=== PATIENT | female | born 1940 | race Caucasian/White ===

== ENCOUNTER 2018-08-30 04:36 | Inpatient (IN) | payer MEDICARE, BC ==
[2018-08-30] VITALS (23 sets, daily range): BP systolic 106–164; BP diastolic 51–87
[~2018-08-30] VITALS: Ht 157.5 cm; Wt 61.2 kg
[2018-08-30 04:52] LABS: HEMATOCRIT 34.4 % (37.0-47.0); HEMOGLOBIN 10.8 gm/dL (12.0-15.0); MCH 26.2 pg (26.0-34.0); MCHC 31.3 g/dL (28.0-37.0); MCV 83.6 fL (80.0-100.0); MPV 9.6 fl. (7.2-11.1); NUCLEATED RBCS 0 /100WBC; PLATELET COUNT* 246 thou/uL (150-400); RBC 4.11 mil/uL (4.20-5.00); RDW-CV 18.8 % (10.5-14.5); WBC 14.4 thou/uL (4.0-11.0)
[2018-08-30] MEDS ORDERED: VITAMINC500 PO (04:56)
[2018-08-30] MEDS ORDERED: ASPIR 8181 MG PO (04:57)
[2018-08-30] MEDS ORDERED: LIPITOR10 MG PO (04:57)
[2018-08-30] MEDS ORDERED: VITAMIN B-12500 MCG PO (04:58)
[2018-08-30] MEDS ORDERED: NORCO 5-325 TA1 EACH PO ×2 (04:58→05:10)
[2018-08-30] MEDS ORDERED: CYCLOBENZAPRINE5 MG PO (04:59)
[2018-08-30] MEDS ORDERED: CARDIZEM CD120 MG PO (05:00)
[2018-08-30] MEDS ORDERED: COLACE100 MG PO ×2 (05:00→05:13)
[2018-08-30] MEDS ORDERED: GABAPENTIN 100100 MG PO (05:01)
[2018-08-30] MEDS ORDERED: ARICEPT 5 MG TAB5 MG PO (05:01)
[2018-08-30] MEDS ORDERED: LASIX 40 MG TAB40 M2 PO (05:01)
[2018-08-30] MEDS ORDERED: CENTRUM SILVER1 EAC2 PO (05:02)
[2018-08-30] MEDS ORDERED: MELATIN3 MG PO (05:02)
[2018-08-30] MEDS ORDERED: RISPERIDONE 00.25 M1 PO (05:03)
[2018-08-30] MEDS ORDERED: PROTONIX40 M1 PO (05:03)
[2018-08-30] MEDS ORDERED: FLOMAX0.4 MG PO (05:03)
[2018-08-30] MEDS ORDERED: PROPRANOLOL 1010 MG PO (05:04)
[2018-08-30] MEDS ORDERED: EFFEXOR XR75 MG PO (05:04)
[2018-08-30] MEDS ORDERED: SYNTHROID112 MC1 PO (05:05)
[2018-08-30] MEDS ORDERED: MIRALAX17 GM PO (05:05)
[2018-08-30] MEDS ORDERED: RESTORIL7.5 M1 PO (05:08)
[2018-08-30 05:09] LABS: INR 1.1; PROTIME 11.6 Seconds (9.20-11.50)
[2018-08-30] MEDS ORDERED: FLORASTOR250 MG PO (05:09)
[2018-08-30] MEDS ORDERED: PROLIA60 MG/1 ML SUBQ (05:12)
[2018-08-30] MEDS ORDERED: AZITHROMYCIN 2250 MG PO (05:12)
[2018-08-30] MEDS ORDERED: SENNA8.6 MG PO (05:13)
[2018-08-30] MEDS ORDERED: DUONEB ×2 (05:18→05:19)
[2018-08-30] MEDS ORDERED: BIOFREEZE118 ML (05:21)
[2018-08-30 05:39] LABS: BE 7.3 mmol/L (-2 to +3); HCO3 33.3 mmol/L (22.0-26.0); PO2 80.3 mmHg (75.0-100.0); pH 7.405 (7.340-7.450)
[2018-08-30 05:40] LABS: PCO2 54.3 mmHg (35.0-45.0)
[2018-08-30 05:41] LABS: ANION GAP 6 mmol/L (7-16); BUN 10 mg/dL (7-18); CALCIUM 8.8 mg/dL (8.5-10.1); CHLORIDE 97 mmol/L (98-107); CO2 37 mmol/L (21-32); CREATININE 0.9 mg/dL (0.6-1.3); GLUCOSE 189 mg/dL (70-99); POTASSIUM 3.5 mmol/L (3.5-5.1); SODIUM 140 mmol/L (136-145)
[2018-08-30 05:52] LABS: ALKALINE PHOSPHATASE 105 U/L (46-116); LIPASE 50 U/L (73-393); SGOT 33 U/L (15-37); SGPT 22 U/L (30-65); TOTAL BILIRUBIN 0.5 mg/dL (<0.1-1.0)
[2018-08-30 05:54] LABS: ALBUMIN 3.4 g/dL (3.4-5.0); NT-PRO BRAIN NAT PEPTIDE 3509 pg/mL (<300); TOTAL PROTEIN 7.8 g/dL (6.4-8.2)
[2018-08-30 05:55] LABS: TROPONIN-I LEVEL <0.06 ng/mL (<0.06)
[2018-08-30 06:36] LABS: ABSOLUTE LYMPHOCYTES 1.2 thou/uL (0.8-5.3); ABSOLUTE NEUTROPHILS 12.2 thou/uL (1.6-8.1); PLATELET ESTIMATE ADEQUATE
[2018-08-30 06:37] LABS: ANISOCYTOSIS 1+; POIKILOCYTOSIS 1+
--- NOTE | 2018-08-30 07:21 | NUR ---
PT ADMITTED TO ICU ROOM 6 AT 0640 FOR BILATERAL PNEUMONIA. PT RESIDES AT [facility]. PT'S DAUGHTER AT BEDSIDE REALTING HEALTH HISTORY. VITAL SIGNS WITHIN NORMAL LIMITS. PT RECIEVING IV LEVAQUIN.
--- NOTE | 2018-08-30 08:08 | NUR ---
ASSUMED PT CARE 0730. PT ALERT TO PERSON AND PLACE. PER DTR MONCHO (AT BEDSIDE) PT TYPICALLY HAS DIFFICULTY WITH DATES. PT RESTING WITH BIPAP IN PLACE AT FIO2 @45% PT SATTING AT 95%. PT CALM AND COOPERATIVE. ALCAZAR DRANING DEPENDENTLY. WILL CONTINUE PLAN OF CARE.
[2018-08-30 11:12] LABS: URINE BILIRUBIN NEGATIVE (Negative); URINE BLOOD NEGATIVE (Negative); URINE CLARITY SL CLOUDY; URINE COLOR STRAW; URINE GLUCOSE-RANDOM NEGATIVE (Negative); URINE KETONES NEGATIVE (Negative); URINE LEUKOCYTES-REFLEX NEGATIVE (Negative); URINE NITRITE-REFLEX NEGATIVE (Negative); URINE PROTEIN NEGATIVE (Negative); URINE UROBILINOGEN 0.2 E.U./dl (0.2-1.0)
[2018-08-30 11:20] LABS: SQUAMOUS 0-3 Few /LPF (0-3)
[2018-08-30 11:22] LABS: BACTERIA-REFLEX 1-9 Few /HPF (None Seen); CASTS None Seen /LPF (None Seen); CRYSTALS None Seen /LPF (None Seen); URINE RBC None Seen /HPF (0-2); URINE WBC-REFLEX 0-5 Rare /HPF (0-5)
[2018-08-30 11:23] LABS: AMORPHOUS PHOSPHATES Moderate /LPF (None Seen)
--- NOTE | 2018-08-30 12:22 | NUR ---
PT TAKEN OFF BIPAP AT 1045. PT PLACED ON 5L NC SATTING 95%.
--- NOTE | 2018-08-30 13:36 | CON ---
[address] [address] CONSULTATION Name: SOTO FERNANDEZ Room: [address] IN M.R.#: [id number] Admission: 08/30/18 Attend Phys: Jennifer Becerra MD Discharge: Date of : 36 Report #: [id number] THIS REPORT FOR: //name// CC: Nazario Becerra REFERRING PHYSICIAN: Dr. Walden. CHIEF COMPLAINT: The patient was on BiPAP during my evaluation with a background history of dementia. She did not provide meaningful history, although she was lethargic, but she was able to nod her head yes and no, and she is protecting her airways. HISTORY OF PRESENT ILLNESS: This is a 77-year-old female patient with history of dementia. Per the daughter, she is wheelchair bound because of history of CVA in the past that left her weak on the left side. Also in the past, she had history of aspiration at one point, although currently she is on regular diet, but her daughter said in the past, she was on thickened food in the past. Apparently, she improved, and she was started on regular diet. The patient was treated for pneumonia 3 weeks ago at [facility], and again a few days ago, she was started on azithromycin for pneumonia at the facility. She was brought in due to acute respiratory failure, worsening respiratory status. When she came to the ER, she was hypoxic, and she had to be placed on BiPAP. Apparently, her O2 saturation in the ER was in the 60s. She has history of oxygen for at least a year or two now, but the daughter is not clear what is the reason for that, but she knows that the patient has history of congestive heart failure. The patient never smoked. She is not on any inhalers at home. Her baseline oxygen 3.5 liters. She has pacemaker placed, and she has paroxysmal AFib with a stroke as mentioned above, in addition to dysphagia. REVIEW OF SYSTEMS: At this point, not obtainable due to the patient's condition and history of dementia. ALLERGIES: PENICILLIN AND SULFA. PAST MEDICAL HISTORY: Recurrent pneumonia. History of dementia, hypertension, atrial fibrillation, CHF, status post pacemaker, degenerative disk disease, osteoporosis, compression fracture x 2 in her back, ischemic stroke in 2018. History of TIA in the past. She is wheelchair bound. She has urinary retention, reflux disease, dysphagia, bipolar disorder and anemia. PAST SURGICAL HISTORY: Includes cataract surgery, hemorrhoidectomy, hysterectomy, cholecystectomy. FAMILY HISTORY: Reviewed with the daughter, not pertinent to [place] [address] CONSULTATION Name: SOTO FENRANDEZ Room: [address] IN M.R.#: [id number] Admission: 08/30/18 Attend Phys: Jennifer Becerra MD Discharge: Date of : 36 Report #: [id number] SOCIAL HISTORY: Never smoked. Does not drink alcohol. Does not abuse drugs. She is wheelchair bound. She has history of dementia, and she lives at the nursing facility. HOME MEDICATIONS: Reviewed. She is on vitamin C, aspirin, Lipitor, Flexeril, Cardizem, Aricept, Lasix, Neurontin, Protonix, Flomax, Inderal, Restoril, senna. PHYSICAL EXAMINATION: VITAL SIGNS: She is on BiPAP 45%, saturation 97% on the monitor. She is breathing around 18 times a minute, pulse rate of 70, afebrile. GENERAL: Elderly lady. Looks her stated age. BiPAP mask in place. When stimulated, she would shake her head yes or no, but did not talk.. I did not take the BiPAP mask off. Externally, looks healthy and normal. NECK: Full range of movement. Nontender. CHEST: Diminished air movement bilaterally. No definite wheezes, some rhonchi at the bases. No crackles. HEART: S1, S2, no murmur. ABDOMEN: Soft, lax, benign, nontender, obese. Positive bowel sounds. No masses felt, no rebound, no rigidity. EXTREMITIES: Lower extremity edema around +1 equal bilaterally. No calf tenderness. NEUROLOGIC: Arousable. Shaking head yes and no. She had left-sided weakness, but did not follow my instructions for limb examination. PSYCHIATRIC: Mood and affect could not be evaluated. SKIN: Normal for age and race, no rash. LYMPHATICS: No palpable lymph nodes. LABORATORY DATA: Her white blood count 14.4, hemoglobin 10.8 and platelets of 246. Her ABGs on the BiPAP 7.40/54/80. This was done on 50% FiO2. Her INR is 1.1. Her creatinine is 0.9, with a potassium 3.5, sodium 140. BNP was elevated at 3509. Her MRSA screen is pending. She had a chest x-ray in the ER that demonstrated right lower lobe infiltrates with signs of vascular congestion and pleural effusion bilaterally. She underwent CT of the chest that did not show pulmonary embolus, but showed bilateral effusion with consolidation, mostly on the right, also seen in the left. IMPRESSION: 1. Xlvaf-vz-rphhvob hypoxic and hypercapnic respiratory failure. Baseline oxygen at home 3.5 liters. 2. Pulmonary infiltrate. 3. Dysphagia. 4. Suspected repeated aspiration. 5. Congestive heart failure exacerbation with fluid overload. 6. Bilateral pleural effusion. 7. Pulmonary vascular congestion/edema. 8. [place] [address] CONSULTATION Name: SOTO FERNANDEZ Room: [address] IN [facility].#: [id number] Admission: 08/30/18 Attend Phys: Jennifer Becerra MD Discharge: Date of : 36 Report #: [id number] 9. History of atrial fibrillation. PLAN: At this point, the patient's respiratory failure is multifactorial. She has infiltrates. I agree with antibiotic. Also discussed with Dr. Gomez. She would benefit from a swallow evaluation and aspiration precautions. I agree with diuresis. Monitor kidney function and avoid fluid overload. She will be on scheduled nebulization treatment. I did discuss with RN. We will start giving her breaks off the BiPAP and monitor her work of breathing and O2 saturation. Likely, she will be on BiPAP every time she sleeps during this hospitalization. She needs to be on aspiration precautions. She needs a swallow evaluation. We will do a followup chest x-ray in the morning. Discussed with her daughter and RN. Thank you for the consult. Critical care time 35 minutes. <ELECTRONICALLY SIGNED> By: Jae Oates MD 08/30/18 1336 1015 Viraj Oates MD /florencio
--- NOTE | 2018-08-30 16:24 | 2DMMODE ---
[place] [address] 2 D/M-MODE ECHOCARDIOGRAM Name: SOTO FERNANDEZ Room: [address] IN [facility]#: [id number] Admission: 08/30/18 Attend Phys: Jennifer Becerra, Discharge: Date of : 36 Date of Service: 08/30/18 1624 Report #: [id number] THIS REPORT FOR: //name// APPROVED REPORT Study performed: 08/30/2018 09:51:12 EXAM: Comprehensive 2D, Doppler, and color-flow Echocardiogram Patient Location: In-Patient Room #: 006 Status: routine BSA: 1.70 HR: 70 bpm BP: 121/64 mmHg Rhythm: NSR Other Information Study Quality: Good Indications Atrial Fibrillation 2D Dimensions IVSd: 13.91 (7-11mm) LVOT Diam: 18.03 (18-24mm) LVDd: 37.23 mm PWd: 9.61 (7-11mm) Ascending Ao: 29.68 (22-36mm) LVDs: 23.26 (25-40mm) Aortic Root: 26.01 mm Volumes Left Atrial Volume (Systole) LA ESV Index: 27.80 mL/m2 Aortic Valve AoV Peak Roberto.: 1.27 m/s AO Peak Gr.: 6.46 mmHg LVOT Max P.42 mmHg AO Mean Gr.: 3.41 mmHg LVOT Mean P.56 mmHg LVOT Max V: 0.92 m/s AO V2 VTI: 26.20 cm LVOT Mean V: 0.57 m/s LI (VTI): 2.07 cm2 LVOT V1 VTI: 21.24 cm Mitral Valve E/A Ratio: 2.67 MV Decel. Time: 201.09 ms MV E Max Roberto.: 0.91 m/[place] [address] 2 D/M-MODE ECHOCARDIOGRAM Name: SOTO FERNANDEZ Room: [address] IN .R.#: [id number] Admission: 08/30/18 Attend Phys: Jennifer Becerra, Discharge: Date of : 36 Date of Service: 08/30/18 1624 Report #: [id number] MV PHT: 58.32 ms MVA (PHT): 3.77 cm2 TDI E/Lateral E': 10.11 E/Medial E': 15.17 Medial E' Roberto.: 0.06 m/s Lateral E' Roberto.: 0.09 m/s Pulmonary Valve PV Peak Roberto.: 0.98 m/s PV Peak Gr.: 3.85 mmHg Tricuspid Valve RAP Estimate: 5.00 mmHg TR Peak Gr.: 46.51 mmHg RVSP: 51.00 mmHg PA Pressure: 51.00 mmHg Left Ventricle The left ventricle is normal size. There is normal LV segmental wall motion. Mild concentric left ventricular hypertrophy. Left ventricular systolic function is normal. The left ventricular ejection fraction is within the normal range. LVEF is 60-65%. Right Ventricle The right ventricle is normal size. The right ventricular systolic function is normal. Pacemaker lead is present in the right ventricle. Atria Left atrium is moderately dilated. The right atrium size is normal. Aortic Valve Mild aortic valve sclerosis. No aortic regurgitation is present. There is no aortic valvular stenosis. Mitral Valve Mild mitral annular calcification. Mild mitral regurgitation. No evidence of mitral valve stenosis. Tricuspid Valve The tricuspid valve is normal in structure. Moderate tricuspid regurgitation. Moderate pulmonary hypertension. Pulmonic Valve The pulmonary valve is normal in structure. Trace [place] [address] 2 D/M-MODE ECHOCARDIOGRAM Name: SOTO FERNANDEZ Room: [address] IN [facility]#: [id number] Admission: 08/30/18 Attend Phys: Jennifer Becerra, Discharge: Date of : 36 Date of Service: 08/30/18 1624 Report #: [id number] Great Vessels The aortic root is normal in size. IVC is normal in size and collapses >50% with inspiration. Pericardium There is no pericardial effusion. <Conclusion> The left ventricle is normal size. Mild concentric left ventricular hypertrophy. Left ventricular systolic function is normal. The left ventricular ejection fraction is within the normal range. LVEF is 60-65%. The right ventricle is normal size. Left atrium is moderately dilated. The right atrium size is normal. Mild aortic valve sclerosis. No aortic regurgitation is present. There is no aortic valvular stenosis. Mild mitral annular calcification. Mild mitral regurgitation. No evidence of mitral valve stenosis. The tricuspid valve is normal in structure. Moderate tricuspid regurgitation. Moderate pulmonary hypertension. IVC is normal in size and collapses >50% with inspiration. There is no pericardial effusion. There is normal LV segmental wall motion. <ELECTRONICALLY SIGNED> By: Hi Doe MD, FACC 08/30/18 1624 23 23 Hi Doe MD, FACC /INF
--- NOTE | 2018-08-30 16:38 | EKG ---
[place] [address] ELECTROCARDIOGRAM REPORT Name: SOTO FERNANDEZ Room: [address] ADM IN .R.#: [id number] Admission: 08/30/18 Attend Phys: Jennifer Becerra MD Discharge: Date of : 36 Report #: [id number] THIS REPORT FOR: //name// [facility] ED Test Date: 2018-08-30 Test Time: 04:44:11 Pat Name: SOTO FERNANDEZ Department: Room: [facility] Gender: F Bone Char Operator: [place] : 1940 Requested By: Silvana Gutierrez Order Number: [id number] MD: Hi Doe Measurements Intervals [place] Rate: 99 P: 0 GA: 150 QRS: 19 QRSD: 100 T: 194 QT: 351 QTc: 451 Interpretive Statements Atrial fibrillation Repol abnrm suggests ischemia, lateral leads No previous ECG available for comparison Electronically Signed On 08-30-2018 16:38:39 [employer]ID PLANT HELPER by Hi Doe [email or web address] <ELECTRONICALLY SIGNED> By: Hi Doe MD, [facility] 08/30/18 1638 D: 11/443 3 Hi Doe MD, FACC /EPI
--- NOTE | 2018-08-30 17:10 | NUR ---
TITRATING O2 PER PROTOCOL. PER DTR PT WEARS 3L NC AT [facility]. PT SEEN BY SPEECH AND RECEIVED ORDERS FOR REGULAR DIET AND THIN LIQUIDS. PT ALERT TO PERSON AND PLACE. PER DTR PT GENERALLY HAS DIFFICULTY WITH DATE. PT STATED TO DTR "SORRY I GOT SICK". PT AWARE OF SITUATION. VSS. APACED ON TIMBER HAND.
--- NOTE | 2018-08-30 19:10 | NUR ---
PER ST DIET CAN BE CHANGED TO MECHANICAL CHOPPED IF PT REPORTS DIFFICULTY CHEWING FOOD. AT DINNER PT REPORTED FOOD DIFFICULT TO CHEW. ORDER PLACED FOR MECHANICAL CHOPPED DIET.
--- NOTE | 2018-08-30 19:54 | NUR ---
PER DTR PT DOES NOT TAKE ASPIRIN AND TAKES ANOTHER BLOOD THINNER. DR NOTIFIED AND ASKED IF AWARE IF PT TAKES COUMADIN OR ANOTHER BLOOD THINNER. PER TO CONFIRM WITH [facility].
[2018-08-30] MEDS ORDERED: ELIQUIS2.5 MG PO (20:01)
[2018-08-31] VITALS (16 sets, daily range): BP systolic 116–150; BP diastolic 61–79
[2018-08-31 05:31] LABS: ABSOLUTE BASOPHILS 0.1 thou/uL (0.0-0.2); ABSOLUTE EOSINOPHILS 0.1 thou/uL (0.0-0.7); ABSOLUTE LYMPHOCYTES 0.8 thou/uL (0.8-5.3); ABSOLUTE MONOCYTES 0.6 thou/uL (0.0-1.2); ABSOLUTE NEUTROPHILS 6.6 thou/uL (1.6-8.1); BASOPHILS 0.7 %; EOSINOPHILS 0.9 %; HEMATOCRIT 30.7 % (37.0-47.0); HEMOGLOBIN 9.7 gm/dL (12.0-15.0); LYMPHOCYTES 9.9 %; MCH 26.5 pg (26.0-34.0); MCHC 31.7 g/dL (28.0-37.0); MCV 83.5 fL (80.0-100.0); MONOCYTES 7.5 %; MPV 10.3 fl. (7.2-11.1); NUCLEATED RBCS 0 /100WBC; PLATELET COUNT* 199 thou/uL (150-400); RBC 3.68 mil/uL (4.20-5.00); RDW-CV 18.2 % (10.5-14.5); WBC 8.1 thou/uL (4.0-11.0)
[2018-08-31 05:47] LABS: CALCIUM 8.1 mg/dL (8.5-10.1); MAGNESIUM 1.7 mg/dL (1.8-2.4)
[2018-08-31 05:50] LABS: POTASSIUM 2.8 mmol/L (3.5-5.1)
[2018-08-31 08:32] LABS: BE 13.8 mmol/L (-2 to +3); PO2 68.9 mmHg (75.0-100.0); pH 7.437 (7.340-7.450)
[2018-08-31 08:34] LABS: HCO3 40.2 mmol/L (22.0-26.0)
--- NOTE | 2018-08-31 11:00 | NUR ---
SPOKE WITH PATIENT AND DTR NORMA AT BEDSIDE. PT IS A [facility] RESIDENT AT [facility]. DTR SAID SHE HAS LIVED THERE SINCE MARCH AND HAS DONE WELL. PT HAS SOME FORGETFULNESS. PT ON SOFT DIET WITH THIN LIQUIDS, DTR SAID PT SOMETIMES HAS A HARD TIME CHEWING HER FOOD. PT HAS AN IV IN HER LEFT HAND, DTR SAID PT HAS HAD A LEFT MASTECTOMY SO SHOULDN'T HAVE AN IV IN THAT ARM, NURSING NOTIFIED. PLAN IS FOR PT TO RETURN TO [facility] AT DISCHARGE.
[2018-08-31] MEDS ORDERED: XANAX 0.25 MG0.25 MG PO (18:45)
--- NOTE | 2018-08-31 18:46 | NUR ---
DR. OLIVO NOTIFIED THAT PATIENT VERY ANXIOUS AND STATED THAT "THEY GIVE ME SOMETHING FOR THIS OVER AT THE LONG TERM." NO RECORDS FOUND OF ANTI ANXIETY MEDICATIONS. PATIENT 02 SAT DROPPED TO MID 80'S ON 02 5L NC, RT NOTIFIED AND BIPAP PLACED ON PATIENT. PATIENT STILL VERY ANXIOUS. ORDERS RECEIVED FROM DR. OLIVO FOR PRN LORAZEPAM, PATIENT GIVEN DOSE THIS EVENING. SPOKE WITH PATIENTS DAUGHTER AND PER DAUGHTER STATED THAT PATIENT TAKES XANAX. CLARIFIED MED AND DOSE WITH SMV. IV SCHED ABX INFUSED ORDERED. LARGE URINE OUTPUT, SCHED LASIX GIVEN ORDERED. PATIENT REFUSING MOST OF SHIFT TO TURN, EDUCATION GIVEN WITH EACH REFUSAL. PATIENT RESTING COMFORTABLY IN BED AT THIS TIME.
[2018-09-01 00:02] VITALS: BP 131/65
[2018-09-01 04:00] VITALS: BP 116/60
[2018-09-01 04:17] LABS: ABSOLUTE LYMPHOCYTES 0.9 thou/uL (0.8-5.3); ABSOLUTE MONOCYTES 0.7 thou/uL (0.0-1.2); BASOPHILS 0.3 %; EOSINOPHILS 0.2 %; HEMATOCRIT 29.8 % (37.0-47.0); HEMOGLOBIN 9.4 gm/dL (12.0-15.0); LYMPHOCYTES 9.3 %; MCH 26.4 pg (26.0-34.0); MCHC 31.4 g/dL (28.0-37.0); MCV 84.1 fL (80.0-100.0); MONOCYTES 7.7 %; MPV 10.2 fl. (7.2-11.1); NUCLEATED RBCS 0 /100WBC; PLATELET COUNT* 186 thou/uL (150-400); POLYS 82.5 %; RBC 3.54 mil/uL (4.20-5.00); RDW-CV 18.2 % (10.5-14.5); WBC 9.7 thou/uL (4.0-11.0)
[2018-09-01 04:33] LABS: CALCIUM 7.7 mg/dL (8.5-10.1); CREATININE 0.9 mg/dL (0.6-1.3); POTASSIUM 3.6 mmol/L (3.5-5.1)
--- NOTE | 2018-09-01 05:24 | NUR ---
ASSESSMENT COMPLETE. PT SLEPT THROUGH THE NIGHT WITHOUT ANY COCNERNS. PT TOLERATED BIPAP WITH ADEQAUTE SATS. Q2 TURN. DENIES PAIN AND N/V. AFEBRILE AND VITALS STABLE. SEE ASSESSMENT FOR DETAILS. CALL LIGHT WITHIN REACH, WILL CONTINUE PLAN OF CARE
[2018-09-01 08:00] VITALS: BP 101/65
[2018-09-01 11:22] LABS: BE 10.5 mmol/L (-2 to +3); HCO3 36.4 mmol/L (22.0-26.0); PO2 69.9 mmHg (75.0-100.0)
[2018-09-01 11:23] LABS: PCO2 56.1 mmHg (35.0-45.0)
--- NOTE | 2018-09-01 16:46 | NUR ---
PATIENT ALERT AND AWAKE, CONFUSED TODAY, ONLY ORIENTED TO PERSON. RE-ASSURED. ON 5L O2, NC, BIPAP AT NIGHT AND PRN. IV RIGHT HAND SALINE LOCK WITH IV ABX. Q2 TURN, SEVERAL BOWEL MOVEMENTS THIS MORNING, NO MORE AFTER THE AFTERNOON. ALCAZAR CATHETER. LEFT SIDED WEAKNESS, HX OF CVA IN 2018. C/O BACK PAIN, RELIEF WITH POSSITION CHANGED AND MEDICATION. GENERALIZED EDEMA. DAUGHTER AT BEDSIDE. NO OTHER CONCERNS AT THIS TIME. APPROPRIATE AND COOPORATIVE WITH CARE.
[2018-09-01 17:03] VITALS: BP 143/66
[2018-09-01 20:00] VITALS: BP 140/51
[2018-09-01 23:56] VITALS: BP 119/67
[2018-09-02 03:50] VITALS: BP 125/68
[2018-09-02 03:53] LABS: HEMATOCRIT 30.6 % (37.0-47.0); HEMOGLOBIN 9.7 gm/dL (12.0-15.0); MCH 26.5 pg (26.0-34.0); MCHC 31.6 g/dL (28.0-37.0); MCV 83.7 fL (80.0-100.0); MPV 10.3 fl. (7.2-11.1); RBC 3.66 mil/uL (4.20-5.00); RDW-CV 18.7 % (10.5-14.5); WBC 7.4 thou/uL (4.0-11.0)
[2018-09-02 04:09] LABS: CALCIUM 7.4 mg/dL (8.5-10.1); CREATININE 0.9 mg/dL (0.6-1.3)
[2018-09-02 04:10] LABS: POTASSIUM 2.9 mmol/L (3.5-5.1)
--- NOTE | 2018-09-02 05:07 | NUR ---
ASSUMED CARE OF PT AT 1900 PT ALERT AND ORIENTED X4 BUT CONFUSED AND FORGETFUL AT TIMES. PT REQUESTED SLEEP MED BEFORE BED BIPAP PLACE THEN PT SLEPT THROUGH THE NIGHT. PT HAD INCREASED PACER SPIKES IN GROUPED FORM NOTIFIED DR OLIVO ORDERS FOR COREG PLACED AND GIVEN. PT K 2.9 IN THE AM BEGAN REPLACEMENT. WILL CONTINUE PLAN OF CARE.
[2018-09-02 08:47] VITALS: BP 118/62
[2018-09-02 12:06] VITALS: BP 120/60
[2018-09-02 16:03] VITALS: BP 145/72
--- NOTE | 2018-09-02 17:14 | NUR ---
PATIENT SOMEWHAT PROGRESSING WELL TOWARDS GOALS. TITRATED DOWN TO 4 LITERS NASAL CANULA BUT UNABLE TO GO MORE THAN THAT. STILL HAS SOME LABORED BREATHING. ANTIBIOTICS GIVEN THIS SHIFT AND LASIX. AXOX2-3, FORGETFUL. DAUGHTER HAS BEEN HERE AND UPDATED ON TREATMENT AND PLAN OF CARE. DENIES ANY SHORTNESS OF AIR AND NAUSEA. SOME BACK PAIN, PAIN MEDICATIONS GIVEN. BED IN LOWEST POSITION, CALL LIGHT IN REACH.
[2018-09-02 20:00] VITALS: BP 132/66
[2018-09-03] VITALS: BP 137/68
--- NOTE | 2018-09-03 00:26 | NUR ---
PATIENT RESTED IN BED, NO ACUTE CHANGES. PATIENT DID NOT SHOW SIGNS OF DISTRESS. FALL PRECAUTIONS IN PLACE, CALL LIGHT WITH IN REACH, HOURLY ROUNDING OBSERVED, BED ALARM ON.
[2018-09-03 04:00] VITALS: BP 146/76
[2018-09-03 05:30] LABS: CALCIUM 7.2 mg/dL (8.5-10.1); POTASSIUM 3.8 mmol/L (3.5-5.1)
[2018-09-03 07:40] VITALS: BP 144/61
[2018-09-03 09:25] LABS: BE 3.6 mmol/L (-2 to +3); HCO3 28.9 mmol/L (22.0-26.0); PO2 70.6 mmHg (75.0-100.0); pH 7.406 (7.340-7.450)
[2018-09-03 12:00] VITALS: BP 160/65
--- NOTE | 2018-09-03 14:55 | NUR ---
JESSI spoke with Ale in admissions at [facility] to follow up on possible dc plan for over the weekend. JESSI faxed updated info and face sheet as requested to Ale at [facility] fax [phone]. Orders to be faxed to same fax number upon dc. Call Ale at ph [phone], she plans to work over the weekend and approved of pt to return to [facility] over the weekend and will set up transport when needed. [facility] main number [phone]. JESSI called pt dtr Tamika at [phone] and discussed dc planning for either tomorrow or Thursday. Pt dtr in agreement with plan.
[2018-09-03 16:37] VITALS: BP 133/61
--- NOTE | 2018-09-03 18:19 | NUR ---
ASSESSMENT COMPLETE. PT ANXIOUS AND REPORTING SOA MOST OF THE DAY. PT GIVEN PRN LORAZEPAM WHICH SEEMED TO HELP PATIENT TOLERATE BIPAP. PT IS ON 5L PER NC WHEN OFF BIPAP. PT ON BIPAP MOST OF THE DAY. PT STARTED ON 2000ML FLUID RESTRICTION TODAY. PT REPORTED PAIN IN BACK, PRN MEDICATION GIVEN WITH SOME RELIEF REPORTED. ALCAZAR DC'D PER ORDERS. IV IN RIGHT FOREARM, SALINE LOCKED. PT Q2 TURN. REDNESS NOTED TO GROIN AND BUTTOCKS. PT IS [facility] IN NEXT COUPLE OF DAYS. PT IS A-PACED ON TELE MONITOR. SEE ASSESSMENT AND VITALS FOR OTHER DETAILS. CALL LIGHT WITHIN REACH, WILL CONTINUE PLAN OF CARE
[2018-09-03 21:00] VITALS: BP 101/43
[2018-09-04 00:44] VITALS: BP 156/61
[2018-09-04 04:19] LABS: HEMATOCRIT 26.6 % (37.0-47.0); HEMOGLOBIN 8.4 gm/dL (12.0-15.0); MCH 26.7 pg (26.0-34.0); MCHC 31.6 g/dL (28.0-37.0); MCV 84.6 fL (80.0-100.0); MPV 10.3 fl. (7.2-11.1); RBC 3.14 mil/uL (4.20-5.00); RDW-CV 18.7 % (10.5-14.5); WBC 12.1 thou/uL (4.0-11.0)
[2018-09-04 04:32] LABS: CALCIUM 7.4 mg/dL (8.5-10.1); CREATININE 0.8 mg/dL (0.6-1.3)
[2018-09-04 05:14] LABS: POTASSIUM 2.9 mmol/L (3.5-5.1)
[2018-09-04 05:21] VITALS: BP 135/76
--- NOTE | 2018-09-04 07:55 | NUR ---
PATIENT SLEPT PART OF THE NIGHT. IV REMAINS SALINE LOCKED. PATIENT REMAINED ON THE BIPAP ALL NIGHT EXCEPT TO TAKE HER PILLS. PATIENT COMPLAINED OF BACK AND LEFT LEG PAIN. PAIN MEDICINE WAS GIVEN TWICE AND ANXIETY MEDICINE WAS GIVEN ONCE THIS SHIFT. PATIENT HAS BEEN INCONTINENT OF URINE SEVERAL TIMES. HR HAS BEEN ELEVATED IN THE 100'S THIS MORNING. WILL CONTINUE TO MONITOR.
--- NOTE | 2018-09-04 11:14 | NUR ---
NOTIFIED DR MASON OF PATIENT'S HEARTRATE AND MULTIPLE PACEMAKER FIRES. CONFIRMED PACEMAKER IS [employer] THROUGH NURSE AT [facility] AND DAUGHTER NORMA. I ALSO CONFIRMED WITH [employer]. PACEMAKER INTERROGATION REQUESTED TODAY WITH THE [employer] REP.
[2018-09-04 11:50] VITALS: BP 127/83
[2018-09-04 12:00] VITALS: BP 130/61
--- NOTE | 2018-09-04 16:06 | NUR ---
PATIENT IS ALERT AND ORIENTED TODAY PLEASANT BUT ANXIOUS. ON 6 LITERS OF OXYGEN THROUGH NASAL CANNULA TODAY, ABLE TO NOT USE BIPAP TODAY. APPETITE IS FAIR. VITAL SIGNS STABLE OTHER THAN HEART RATE. [employer] CALLED TODAY TO CHECK OUT PACEMAKER, HAVE NOT SEEN YET. PATIENT IS BEING TRANSFERRED TO TELE ROOM 220. PATIENT LEFT VIA BED TO 22O WITH. REPORT GIVEN TO NURSE.
[2018-09-04 16:13] VITALS: BP 129/78
--- NOTE | 2018-09-04 16:16 | NUR ---
PT TRANSFERRED TO ROOM 220 AROUND 1600. REPORT RECEIVED FROM MED/SURG NURSE. ALCAZAR PLACED PRIOR TO TRANSFER. CONTINUING POTASSIUM REPLACEMENT. NO OTHER CONCERNS AT THIS TIME. CLWR. WCTM.
[2018-09-04 20:00] VITALS: BP 122/64
[2018-09-05] VITALS (7 sets, daily range): BP systolic 83–176; BP diastolic 41–152
--- NOTE | 2018-09-05 04:19 | NUR ---
ASSUMED CARE OF PT AFTER REPORT AT 1930. PT A&OX4. FORGETFUL. VSS. PHYSICAL ASSESSMENT COMPLETED AND CHARTED. PT ON O2 AT 6L NC/BIPAP WHEN SLEEPING WITH 94% O2 SAT. PT TRACING AFIB/VPACED ON TELE. ON CARDIZEM DRIP AT 10MLS/HR. PT REQUESTED FOR SLEEPING PILL- GIVEN PER DEC. PT WITH ALCAZAR TO DEPENDENT DRAIN. PT RESTED WELL ON BED. PT TURNED EVERY 2 HOURS. HOURLY ROUNDING OBSERVED. CALL LIGHT WITHIN REACH. BED IN LOW POSITION. BED ALARM ON.
[2018-09-05 04:39] LABS: CALCIUM 7.6 mg/dL (8.5-10.1); CREATININE 0.8 mg/dL (0.6-1.3)
[2018-09-05 13:09] LABS: HEMATOCRIT 30.9 % (37.0-47.0); HEMOGLOBIN 9.7 gm/dL (12.0-15.0); MCH 26.5 pg (26.0-34.0); MCHC 31.3 g/dL (28.0-37.0); MCV 84.6 fL (80.0-100.0); MPV 10.3 fl. (7.2-11.1); NUCLEATED RBCS 0 /100WBC; PLATELET COUNT* 214 thou/uL (150-400); RBC 3.66 mil/uL (4.20-5.00); RDW-CV 18.6 % (10.5-14.5); WBC 14.6 thou/uL (4.0-11.0)
--- NOTE | 2018-09-05 13:23 | CON ---
[address] [address] CONSULTATION Name: REBECCASOTO Liseth Room: [address] IN M.R.#: [id number] Admission: 08/30/18 Attend Phys: Jennifer Becerra MD Discharge: Date of : 36 Report #: [id number] THIS REPORT FOR: //name// CC: Nazario Becerra Cardiology Consultation INDICATION: Atrial fibrillation with rapid ventricular response rate. HISTORY OF PRESENT ILLNESS: The patient was admitted to the hospital several days ago with what was felt to be sepsis and acute respiratory failure. There appears to be an element of acute on chronic diastolic heart failure as well. She has been diuresing adequately with IV Lasix. This morning, she was noted to be in atrial fibrillation with a rapid ventricular response rate. By history, she has a dual chamber pacemaker placed many years ago. Interrogation shows that she has paroxysmal atrial fibrillation with the latest episode beginning 13 hours ago. Pacemaker thresholds, impedances, sensing, and battery life all appear good. The patient denies any chest pain or significant shortness of breath. She has chronic mid and low back pain from osteoporosis and compression fractures. She is without specific cardiac complaint. Hemodynamically, she appears stable. PAST MEDICAL HISTORY: 1. Paroxysmal atrial fibrillation. 2. Status post dual chamber pacemaker placement. 3. Chronic diastolic heart failure. 4. Osteoporosis. 5. Dementia. 6. History of CVA/TIAs. 7. Hysterectomy. 8. Hemorrhoidectomy. 9. Cholecystectomy. 10. Left mastectomy. 11. Cataract removal. FAMILY HISTORY: Noncontributory. SOCIAL HISTORY: The patient resides in assisted care. There is no alcohol or drug use. REVIEW OF SYSTEMS: Noncontributory. PHYSICAL EXAMINATION: VITAL SIGNS: Blood pressure 129/78, pulse is currently in the one-teens to 120s [place] [address] CONSULTATION Name: SOTO FERNANDEZ Room: [address]#: [id number] Admission: 08/30/18 Attend Phys: Jennifer Becerra MD Discharge: Date of : 36 Report #: [id number] GENERAL: This is a pleasant elderly female who is in no distress. HEENT: Head is normocephalic, atraumatic. Pupils are equally round and reactive to light. Extraocular muscles intact. NECK: Shows no jugular venous distention. I do not appreciate carotid bruit. CHEST: Chest reveals diminished breath sounds throughout. CARDIAC: Reveals a tachycardic rate that is irregularly irregular. I do not appreciate gallop or murmur. ABDOMEN: Reveals normal bowel sounds. The abdomen is soft, nontender. EXTREMITIES: Shows no edema. SKIN: Warm and dry. DATA: Telemetry monitoring presently shows atrial fibrillation with rapid ventricular response rate. Early telemetry showed atrial pacing with first-degree AV block. Chest x-ray shows persistent pneumonia. This is improving. Labs are reviewed. Sodium 144, potassium 2.9, chloride 107, bicarbonate 29, BUN 17, creatinine 0.8, serum glucose 111. LFTs within normal limits. NT-proBNP 6888. White blood cell count 12.1, hemoglobin 8.4, platelet count 176,000. IMPRESSION AND RECOMMENDATIONS: 1. Paroxysm of atrial fibrillation with rapid ventricular response. The patient is chronically anticoagulated. I would continue this. Starting sotalol 80 mg twice daily in an effort to force conversion to sinus rhythm and maintain sinus rhythm. Continue diltiazem drip for now. 2. History of sick sinus syndrome, status post dual chamber pacemaker placement remotely. Pacemaker interrogation today shows normal function. 3. Pneumonia per primary physician. 4. Acute on chronic diastolic heart failure. The patient is responding nicely to IV diuresis. Continue Lasix as ordered. 5. Hypokalemia. We will order additional potassium bolus at this time. <ELECTRONICALLY SIGNED> By: Marlon De Luna MD, FACC 09/05/18 1323 1702 [id number] De Luna MD, FACC /nt
[2018-09-05 13:26] LABS: ALBUMIN 2.4 g/dL (3.4-5.0); CREATININE 0.9 mg/dL (0.6-1.3); POTASSIUM 3.4 mmol/L (3.5-5.1); TOTAL BILIRUBIN 0.5 mg/dL (<0.1-1.0); TOTAL PROTEIN 6.8 g/dL (6.4-8.2)
[2018-09-05 13:55] LABS: ABSOLUTE LYMPHOCYTES 1.5 thou/uL (0.8-5.3); ABSOLUTE MONOCYTES 0.7 thou/uL (0.0-1.2); ABSOLUTE NEUTROPHILS 12.4 thou/uL (1.6-8.1); PLATELET ESTIMATE ADEQUATE
[2018-09-05 13:56] LABS: ANISOCYTOSIS 1+
--- NOTE | 2018-09-05 15:38 | EKG ---
[place] [address] ELECTROCARDIOGRAM REPORT Name: SOTO FERNANDEZ Room: [address] ADM IN ..#: [id number] Admission: 08/30/18 Attend Phys: Jennifer Becerra MD Discharge: Date of : 36 Report #: [id number] THIS REPORT FOR: //name// [facility] Test Date: 2018-09-04 Test Time: 17:09:11 Pat Name: SOTO FERNANDEZ Department: Room: [address] Gender: F Accounting Professional: : 1940 Requested By: Marlon De Luna Order Number: [id number] Reading MD: Marlon De Luna Measurements Intervals [place] Rate: 126 P: [place]: QRS: -12 QRSD: 87 T: 175 QT: 306 QTc: 444 Interpretive Statements Atrial fibrillation Repol abnrm suggests ischemia, diffuse leads Compared to ECG 08/30/2018 04:44:11 Possible ischemia still present Electronically Signed On 09-05-2018 15:38:14 EDGER TECHNICIAN by Marlon De Luna [email or web address] <ELECTRONICALLY SIGNED> By: Marlon De Luna MD, [facility] 09/05/18 1538 1709 1709 Marlon De Luna MD, FAC /EPI
--- NOTE | 2018-09-05 15:40 | EKG ---
[place] [address] ELECTROCARDIOGRAM REPORT Name: SOTO FERNANDEZ Room: [address] ADM IN ..#: [id number] Admission: 08/30/18 Attend Phys: Jennifer Becerra MD Discharge: Date of : 36 Report #: [id number] THIS REPORT FOR: //name// [facility] Test Date: 2018-09-05 Test Time: 03:03:10 Pat Name: SOTO FERNANDEZ Department: Room: [address] Gender: F Phototypesetting Equipment Monitor: MARITA : 1940 Requested By: Marlon De Luna Order Number: [id number] Reading MD: Marlon De Luna Measurements Intervals [place] Rate: 99 P: CA: QRS: -6 QRSD: 90 T: 209 QT: 441 QTc: 567 Interpretive Statements Atrial fibrillation Repol abnrm suggests ischemia, diffuse leads Prolonged QT interval Compared to ECG 08/30/2018 04:44:11 Prolonged QT interval now present Possible ischemia still present Electronically Signed On 09-05-2018 15:40:45 WINDING RACK OPERATOR by Marlon De Luna [email or web address] <ELECTRONICALLY SIGNED> By: Marlon De Luna MD, FAC 09/05/18 1540 0303 0303 Marlon De Luna MD, [facility] /EPI
--- NOTE | 2018-09-05 16:38 | NUR ---
PT SOMEWHAT PROGRESSING TOWARDS GOALS THIS SHIFT. B/P LOW AROUND NOON. IV CARDIZEM GTT DC'D. PT GIVEN PART OF NS FLUID BOLUS. ASSESSED LABS. PT B/P REASSESSED AND WNL. PT REQUESTED PRN MEDICATION FOR PAIN X1 AND ANXIETY X1 THIS SHIFT. NO OTHER CONCERNS AT THIS TIME. CLWR. WCTM.
[2018-09-06 00:07] VITALS: BP 127/55
[2018-09-06 04:00] VITALS: BP 119/76
[2018-09-06 04:52] LABS: CALCIUM 7.8 mg/dL (8.5-10.1); CREATININE 0.8 mg/dL (0.6-1.3)
[2018-09-06 04:55] LABS: POTASSIUM 4.7 mmol/L (3.5-5.1)
[2018-09-06 04:57] LABS: ABSOLUTE LYMPHOCYTES 0.4 thou/uL (0.8-5.3); ABSOLUTE MONOCYTES 0.2 thou/uL (0.0-1.2); ABSOLUTE NEUTROPHILS 9.4 thou/uL (1.6-8.1); BASOPHILS 0.1 %; HEMATOCRIT 31.6 % (37.0-47.0); LYMPHOCYTES 3.9 %; MCH 26.8 pg (26.0-34.0); MCHC 31.6 g/dL (28.0-37.0); MCV 84.7 fL (80.0-100.0); MONOCYTES 1.7 %; MPV 10.5 fl. (7.2-11.1); NUCLEATED RBCS 0 /100WBC; PLATELET COUNT* 196 thou/uL (150-400); POLYS 94.3 %; RBC 3.73 mil/uL (4.20-5.00); RDW-CV 18.3 % (10.5-14.5); WBC 9.9 thou/uL (4.0-11.0)
--- NOTE | 2018-09-06 05:09 | NUR ---
ASSUMED CARE OF PT AFTER REPORT AT 1930. PT A&OX3. FORGETFUL. VSS. PHYSICAL ASSESSMENT COMPLETED AND CHARTED. PT ON O2 AT 4L NC/BIPAP WHEN SLEEPING WITH 96% O2 SAT. PT TRACING AFIB/AV PACED ON TELE. PT WITH ALCAZAR TO DEPENDENT DRAIN PT DENIES CHEST PAIN OR SOA. PT RESTED WELL ON BED. TURNED PT EVERY 2 HOURS. HOURLY ROUNDING OBSERVED. CALL LIGHT WITHIN REACH. BED IN LOW POSITION. BED ALARM ON.
[2018-09-06 07:20] VITALS: BP 101/49
[2018-09-06 09:52] LABS: BE 0.8 mmol/L (-2 to +3); HCO3 26.2 mmol/L (22.0-26.0); PCO2 44.5 mmHg (35.0-45.0); PO2 69.1 mmHg (75.0-100.0); pH 7.387 (7.340-7.450)
--- NOTE | 2018-09-06 09:56 | NUR ---
Updated Ale with SMV of Pt's current POC, Pt to return to [facility] at dc. Following.
--- NOTE | 2018-09-06 10:37 | EKG ---
[place] [address] ELECTROCARDIOGRAM REPORT Name: SOTO FERNANDEZ Room: [address] ADM IN .R.#: [id number] Admission: 08/30/18 Attend Phys: Jennifer Becerra MD Discharge: Date of : 36 Report #: [id number] THIS REPORT FOR: //name// [facility] Test Date: 2018-09-06 Test Time: 03:43:26 Pat Name: SOTO FERNANDEZ Department: Room: [address] Gender: F Mailmaster: [facility] : 1940 Requested By: Marlon De Luna Order Number: [id number] Gonzales MD: Paresh Amaya Measurements Intervals [place] Rate: 102 P: [place]: QRS: -12 QRSD: 93 T: 231 QT: 440 QTc: 574 Interpretive Statements sinus tachycardia with pac's Probable LVH with secondary repol abnrm Prolonged QT interval Compared to ECG 09/05/2018 03:03:10 rate increased Electronically Signed On 09-06-2018 10:36:49 ENTRY LEVEL ACCOUNT EXECUTIVE by Paresh Amaya [email or web address] <ELECTRONICALLY SIGNED> By: Paresh Amaya MD, [facility] 09/06/18 1036 0343 0343 Paresh Amaya MD, [facility] /EPI
--- NOTE | 2018-09-06 10:39 | EKG ---
[place] [address] ELECTROCARDIOGRAM REPORT Name: SOTO FERNANDEZ Room: [address] ADM IN [facility].#: [id number] Admission: 08/30/18 Attend Phys: Jennifer Becerra MD Discharge: Date of : 36 Report #: [id number] THIS REPORT FOR: //name// [facility] Test Date: 2018-09-06 Test Time: 08:39:44 Pat Name: SOTO FERNANDEZ Department: Room: [address] Gender: F Regulatory Affairs Spec: : 1940 Requested By: Marlon De Luna Order Number: [id number] Gonzales MD: Paresh Amaya Measurements Intervals [place] Rate: 85 P: GA: QRS: -7 QRSD: 96 T: 250 QT: 424 QTc: 505 Interpretive Statements Atrial fibrillation Abnormal T, consider ischemia, diffuse leads Prolonged QT interval Electronically Signed On 09-06-2018 10:39:38 PAINTER ROUGH by Paresh Amaya [email or web address] <ELECTRONICALLY SIGNED> By: Paresh Amaya MD, [facility] 09/06/18 1039 0839 0839 Paresh Amaya MD, FACC /EPI
[2018-09-06 12:19] VITALS: BP 102/61
--- NOTE | 2018-09-06 12:22 | NUR ---
Nutrition: Pt assessed for LOS. Admitted with PNA. Pt nonverbal, will go back to [facility] at disch. BG 220, alb 2.4, prealb 15.3. Wt seems to be decreasing, per [employer]. Current wt is 135#. Fiber restricted diet. Mild risk. Unsure po intake today. Increased nutrient needs R/T etiology unknown AEB labs above, possible wt loss. RD WILL ORDER ENSURE HIGH PROTEIN FOR ADDED NUTRITION.
[2018-09-06 17:08] VITALS: BP 98/42
[2018-09-06 20:00] VITALS: BP 104/62
[2018-09-07] VITALS: BP 120/74
[2018-09-07 04:00] VITALS: BP 135/87
[2018-09-07 04:51] LABS: HEMATOCRIT 30.9 % (37.0-47.0); HEMOGLOBIN 9.7 gm/dL (12.0-15.0); MCH 26.9 pg (26.0-34.0); MCHC 31.4 g/dL (28.0-37.0); MCV 85.5 fL (80.0-100.0); MPV 10.5 fl. (7.2-11.1); RBC 3.61 mil/uL (4.20-5.00); RDW-CV 18.7 % (10.5-14.5); WBC 11.4 thou/uL (4.0-11.0)
--- NOTE | 2018-09-07 05:06 | NUR ---
ASSUMED CARE OF PT AFTER REPORT AT 1930. PT A&OX3. FORGETFUL. VSS. PHYSICAL ASSESSMENT COMPLETED AND CHARTED. PT ON O2 AT 4L NC/ BIPAP AT NIGHT WITH 96% O2 SAT. PT TRACING AFIB/VPACED ON TELE. PT REPORTED TO BE UP WITH 2 MAS ASSIST TO RECLINER BUT REMAINS ON BED ALL NIGHT. PT WITH ALCAZAR TO DEPENDENT DRAIN. DENIES ANY PAIN OR DISCOMFORT. HOURLY ROUNDING OBSERVED. CALL LIGHT WITHIN REACH. BED IN LOW POSITION. BED ALARM ON.
[2018-09-07 05:14] LABS: ALBUMIN 2.4 g/dL (3.4-5.0); CREATININE 0.9 mg/dL (0.6-1.3); MAGNESIUM 2.4 mg/dL (1.8-2.4); PHOSPHORUS* 2.1 mg/dL (2.5-4.9); POTASSIUM 4.5 mmol/L (3.5-5.1)
[2018-09-07 08:00] VITALS: BP 130/72
[2018-09-07 11:25] VITALS: BP 109/65
[2018-09-07 15:00] VITALS: BP 136/72
--- NOTE | 2018-09-07 16:26 | EKG ---
[place] [address] ELECTROCARDIOGRAM REPORT Name: SOTO FERNANDEZ Room: [address] ADM IN ..#: [id number] Admission: 08/30/18 Attend Phys: Jennifer Becerra MD Discharge: Date of : 36 Report #: [id number] THIS REPORT FOR: //name// [facility] Test Date: 2018-09-07 Test Time: 08:12:27 Pat Name: SOTO FERNANDEZ Department: Room: [address] Gender: F Wholesale Loan Processor: : 1940 Requested By: Paresh Amaya Order Number: [id number] Reading MD: Marlon De Luna Measurements Intervals [place] Rate: 97 P: NV: QRS: 2 QRSD: 94 T: 261 QT: 390 QTc: 496 Interpretive Statements Atrial fibrillation Repol abnrm suggests ischemia, anterolateral Compared to ECG 09/06/2018 08:39:44 Early repolarization now present T-wave abnormality no longer present Prolonged QT interval no longer present Possible ischemia still present Electronically Signed On 09-07-2018 16:25:54 ATHLETIC AGENT by Marlon De Luna [email or web address] <ELECTRONICALLY SIGNED> By: Marlon De Luna MD, FACC 09/07/18 1625 1 1 Marlon De Luna MD, FAC /EPI
--- NOTE | 2018-09-07 17:33 | NUR ---
PT ALERT, ORIENTED X3. TELE TRACKING AFIB, OCCASIONAL PACING AND VSS ON 4L. PT UP IN CHAIR ON WAFFLE CUSHION FOR MAJORITY OF SHIFT. TOLERATED WELL. BM X2 TODAY, ALCAZAR TO DD WITH ADEQUATE OUTPUT. ISAI AREA REDDENED- BARRIER CREAM APPLIED. EDUCATED ON SAFETY AND PLAN OF CARE. PLEASE SEE ASSESSMENT FOR ADDITIONAL INFORMATION. WILL CONTINUE TO MONITOR
[2018-09-07 20:00] VITALS: BP 131/75
[2018-09-08] VITALS: BP 139/89
[2018-09-08 04:00] VITALS: BP 123/69
--- NOTE | 2018-09-08 04:32 | NUR ---
ASSUMED CARE OF PT AFTER REPORT AT 1930. PT A&OX2-3. FORGETFUL. VSS. PHYSICAL ASSESSMENT COMPLETED AND CHARTED. PT ON O2 AT 4L NC/ BIPAP AT NIGHT WITH 94% O2 SAT. PT WITH ALCAZAR TO DEPENEDENT DRAIN. PT RESTED WELL ON BED. DENIES ANY PAIN OR DISCOMFORT. HOURLT ROUNDING OBSERVED. CALL LIGHT WITHIN REACH. BED IN LOW POSITION. BED ALARM ON.
[2018-09-08 05:44] LABS: ALBUMIN 2.3 g/dL (3.4-5.0); CALCIUM 8.1 mg/dL (8.5-10.1); CREATININE 0.8 mg/dL (0.6-1.3); MAGNESIUM 2.5 mg/dL (1.8-2.4); PHOSPHORUS* 1.8 mg/dL (2.5-4.9); POTASSIUM 4.7 mmol/L (3.5-5.1)
[2018-09-08 08:00] VITALS: BP 133/88
--- NOTE | 2018-09-08 10:16 | NUR ---
EMANATIONS ANALYSIS TECHNICIAN SPOKE TO LIZZY WITH [facility] TO INFORM THAT THE PATIENT MAY D/C TODAY AND FAXED UPDATED CLINICALS. CM WILL REMAIN AVAILABLE TO ASSIST AND FOLLOW NEEDED.
--- NOTE | 2018-09-08 10:17 | EKG ---
[place] [address] ELECTROCARDIOGRAM REPORT Name: SOTO FERNANDEZ Room: [address] ADM IN [facility].#: [id number] Admission: 08/30/18 Attend Phys: Jennifer Becerra MD Discharge: Date of : 36 Report #: [id number] THIS REPORT FOR: //name// [facility] Test Date: 2018-09-08 Test Time: 08:26:23 Pat Name: SOTO FERNANDEZ Department: Room: [address] Gender: F Compensation And Benefits Manager: : 1940 Requested By: Paresh Amaya Order Number: [id number] Gonzales MD: Paresh Amaya Measurements Intervals [place] Rate: 118 P: [place]: QRS: 1 QRSD: 91 T: 257 QT: 360 QTc: 505 Interpretive Statements Atrial fibrillation Probable LVH with secondary repol abnrm Prolonged QT interval Baseline wander in lead(s) V2 Compared to ECG 09/07/2018 08:12:27 rate increased Electronically Signed On 09-08-2018 10:17:12 IN SHOP SERVICE TECHNICIAN by Paresh Amaya [email or web address] <ELECTRONICALLY SIGNED> By: Paresh Amaya MD, [facility] 09/08/18 1017 5 5 Paresh Amaya MD, [facility] /EPI
[2018-09-08 12:19] VITALS: BP 123/78
[2018-09-08] MEDS ORDERED: CYCLOBENZAPRINE5 MG PO (12:52)
[2018-09-08] MEDS ORDERED: PROPRANOLOL 1010 MG PO (13:09)
[2018-09-08] MEDS ORDERED: XANAX 0.25 MG0.25 MG PO (13:17)
[2018-09-08] MEDS ORDERED: LEVAQUIN 500 M500 M3 PO (13:19)
[2018-09-08] MEDS ORDERED: PREDNISONE 10 M10 MG PO (13:21)
--- NOTE | 2018-09-08 15:32 | NUR ---
ASSUMED PT CARE AT 0730 REPORT RECEIVED FROM NURSE. PT IS AOX4 AFIB ON HEART MONITOR. LYING IN BED WEARING HER BIPAP FIO2 40% . VSS. BIPAP REMOVED, O2 2 L NC APPLIED . SATURATION REMAINS 96%. NO COMPLAINT OF PAIN. MEDICATIONS ADMISTERED ORDERED WITH APPLE SAUCE. PT ASSITED WIHT BREAKFAST INTAKE. IV LINE PATENT. CARDIO DR SEEN PT IN ROOM. MADE SOME CHANGES ON PT MEDS. LATER DR MASON SEEN PT AND ORDER DISCHARGE TO [facility]. PT FAMILY CAME IN THE AM. MADE AWARE OF PT D/C PLAN. PT DIS NOT RECEIVE HER AM DOSE OF LEVAQUIN IV SINCE PT HAD MULTIPLE IV MEDS INIFUSING. DR MASON NOTIFIED ABOUT IT. DR MASON SAYS IT WAS FINE. PT CURRENTLY GETTING READY BY [employer] FOR D.C. AWAITING FOR SCHEDULED TRANSPORTATION.
--- NOTE | 2018-09-08 16:30 | NUR ---
REPORT GIVEN TO NORMA FROM [facility] AT 1600. PT LEFT FLOOR AT 1545 TO SD ACCOMPANIED BY TRANSPORTER , WITH O2 NC 2 L ON WHEELCHAIR.
== END 2018-09-08 15:45 | DRG 871 ==
LOC: M.ERS 04:36 → M.TBA-ER 05:27 → M.ICU 05:27 → M.ERS 06:19 → M.ICU 06:33 → M.3W 08-31 11:22 → M.2W 09-04 16:13
PROVIDERS: Emergency Medicine; Family Medicine; Internal Medicine; Internal Medicine Cardiovascular Disease; Internal Medicine Pulmonary Disease; ADMIT Internal Medicine
PROC: 5A09357 Assistance with Respiratory Ventilation, Less than 24 Consecutive Hours, Continuous Positive Airway Pressure (ICD-10-PCS; principal; 2018-08-30)
PROC: 5A09357 Assistance with Respiratory Ventilation, Less than 24 Consecutive Hours, Continuous Positive Airway Pressure (ICD-10-PCS; 2018-08-31)
PROC: 5A09357 Assistance with Respiratory Ventilation, Less than 24 Consecutive Hours, Continuous Positive Airway Pressure (ICD-10-PCS; 2018-09-01)
PROC: 5A09357 Assistance with Respiratory Ventilation, Less than 24 Consecutive Hours, Continuous Positive Airway Pressure (ICD-10-PCS; 2018-09-02)
PROC: 5A09357 Assistance with Respiratory Ventilation, Less than 24 Consecutive Hours, Continuous Positive Airway Pressure (ICD-10-PCS; 2018-09-03)
PROC: 5A09357 Assistance with Respiratory Ventilation, Less than 24 Consecutive Hours, Continuous Positive Airway Pressure (ICD-10-PCS; 2018-09-04)
PROC: 5A09357 Assistance with Respiratory Ventilation, Less than 24 Consecutive Hours, Continuous Positive Airway Pressure (ICD-10-PCS; 2018-09-05)
PROC: 5A09357 Assistance with Respiratory Ventilation, Less than 24 Consecutive Hours, Continuous Positive Airway Pressure (ICD-10-PCS; 2018-09-06)
PROC: 5A09357 Assistance with Respiratory Ventilation, Less than 24 Consecutive Hours, Continuous Positive Airway Pressure (ICD-10-PCS; 2018-09-07)
DX: A41.9 Sepsis, unspecified organism (principal); J96.22 Acute and chronic respiratory failure with hypercapnia; J96.21 Acute and chronic respiratory failure with hypoxia; I50.33 Acute on chronic diastolic (congestive) heart failure; J69.0 Pneumonitis due to inhalation of food and vomit; I69.354 Hemiplegia and hemiparesis following cerebral infarction affecting left non-dominant side; F03.90 Unspecified dementia, unspecified severity, without behavioral disturbance, psychotic disturbance, mood disturbance, and anxiety; M81.0 Age-related osteoporosis without current pathological fracture; K21.9 Gastro-esophageal reflux disease without esophagitis; I48.0 Paroxysmal atrial fibrillation; D64.9 Anemia, unspecified; M19.90 Unspecified osteoarthritis, unspecified site; M40.209 Unspecified kyphosis, site unspecified; G89.29 Other chronic pain; M54.9 Dorsalgia, unspecified; R33.9 Retention of urine, unspecified; E03.9 Hypothyroidism, unspecified; E87.6 Hypokalemia; F31.9 Bipolar disorder, unspecified; I11.0 Hypertensive heart disease with heart failure; Z90.710 Acquired absence of both cervix and uterus; Z90.12 Acquired absence of left breast and nipple; Z90.49 Acquired absence of other specified parts of digestive tract; Z98.42 Cataract extraction status, left eye; Z98.41 Cataract extraction status, right eye; Z99.3 Dependence on wheelchair; Z79.82 Long term (current) use of aspirin; Z79.899 Other long term (current) drug therapy; Z88.0 Allergy status to penicillin; Z88.2 Allergy status to sulfonamides

== ENCOUNTER 2018-09-26 01:39 | Inpatient (IN) | payer MEDICARE, BC ==
[2018-09-26] VITALS (7 sets, daily range): BP systolic 92–129; BP diastolic 35–62
[~2018-09-26] VITALS: Ht 157.5 cm; Wt 63.5 kg
[~2018-09-26 01:39] MED LIST: ACCUNEB SO1.25 MG/1 INH; ARICEPT 5 MG TAB5 MG PO; ASPIR 8181 MG PO; AZITHROMYCIN 2250 MG PO; BIOFREEZE118 ML; CARDIZEM CD120 MG PO; CENTRUM SILVER1 EAC2 PO; COLACE100 MG PO; CYCLOBENZAPRINE5 MG PO; DUONEB; EFFEXOR XR75 MG PO; ELIQUIS2.5 MG PO; FLOMAX0.4 MG PO; FLORASTOR250 MG PO; GABAPENTIN 100100 MG PO; LASIX 40 MG TAB40 M2 PO; LEVAQUIN 500 M500 M3 PO; LIPITOR10 MG PO; MELATIN3 MG PO; MIRALAX17 GM PO; NORCO 5-325 TA1 EACH PO; PREDNISONE 10 M10 MG PO; PROLIA60 MG/1 ML SUBQ; PROPRANOLOL 1010 MG PO; PROTONIX40 M1 PO; RESTORIL7.5 M1 PO; RISPERIDONE 00.25 M1 PO; SENNA8.6 MG PO; SYNTHROID112 MC1 PO; VITAMIN B-12500 MCG PO; VITAMINC500 PO; XANAX 0.25 MG0.25 MG PO
[2018-09-26 02:19] LABS: HEMOGLOBIN 10.4 gm/dL (12.0-15.0); MCH 28.4 pg (26.0-34.0); MCHC 32.4 g/dL (28.0-37.0); MCV 87.5 fL (80.0-100.0); MPV 10.3 fl. (7.2-11.1); NUCLEATED RBCS 0 /100WBC; PLATELET COUNT* 120 thou/uL (150-400); RBC 3.66 mil/uL (4.20-5.00); RDW-CV 20.2 % (10.5-14.5); WBC 10.2 thou/uL (4.0-11.0)
[2018-09-26 02:40] LABS: ANION GAP 8 mmol/L (7-16); BUN 17 mg/dL (7-18); CALCIUM 8.4 mg/dL (8.5-10.1); CHLORIDE 102 mmol/L (98-107); CO2 31 mmol/L (21-32); CREATININE 0.9 mg/dL (0.6-1.3); GLUCOSE 164 mg/dL (70-99); POTASSIUM 3.8 mmol/L (3.5-5.1); SODIUM 141 mmol/L (136-145)
[2018-09-26 02:41] LABS: INR 1.1
[2018-09-26 02:52] LABS: ALBUMIN 2.8 g/dL (3.4-5.0); ALKALINE PHOSPHATASE 83 U/L (46-116); NT-PRO BRAIN NAT PEPTIDE 2103 pg/mL (<300); SGOT 36 U/L (15-37); SGPT 37 U/L (30-65); TOTAL BILIRUBIN 0.6 mg/dL (<0.1-1.0); TOTAL PROTEIN 6.5 g/dL (6.4-8.2); TROPONIN-I LEVEL <0.06 ng/mL (<0.06)
[2018-09-26 02:56] LABS: URINE BILIRUBIN NEGATIVE (Negative); URINE BLOOD NEGATIVE (Negative); URINE CLARITY CLEAR; URINE COLOR YELLOW; URINE GLUCOSE-RANDOM NEGATIVE (Negative); URINE KETONES TRACE (Negative); URINE LEUKOCYTES-REFLEX NEGATIVE (Negative); URINE NITRITE-REFLEX NEGATIVE (Negative); URINE PROTEIN TRACE (Negative); URINE SPECIFIC GRAVITY 1.025 (1.005-1.030); URINE UROBILINOGEN 0.2 E.U./dl (0.2-1.0)
[2018-09-26 03:50] LABS: ABSOLUTE LYMPHOCYTES 0.9 thou/uL (0.8-5.3); ABSOLUTE MONOCYTES 0.6 thou/uL (0.0-1.2); ABSOLUTE NEUTROPHILS 8.7 thou/uL (1.6-8.1)
[2018-09-26 03:54] LABS: ANISOCYTOSIS 2+; PLATELET ESTIMATE DECREASED
[2018-09-26 03:55] LABS: HYPOCHROMASIA 1+; POLYCHROMASIA 1+
[2018-09-26 04:44] LABS: BE 7.5 mmol/L (-2 to +3); HCO3 31.8 mmol/L (22.0-26.0); PCO2 43.9 mmHg (35.0-45.0); pH 7.478 (7.340-7.450)
[2018-09-26 04:47] LABS: PO2 320.8 mmHg (75.0-100.0)
--- NOTE | 2018-09-26 06:11 | NUR ---
ASSUMED PT CARE AT 0530. PT IS AWAKE AND ALERT. BROUGHT UP BY ED STAFF STACEY BIPAP. PT SATTING MID TO LOW 90'S. ON BIPAP. PT IS A PACED ON THE MONITOR, VERY PALE AND DIAPHORETIC. ADMISSION COMPLETED CHARTED. BED IN LOW POSITION. CALL LIGHT IN REACH YELLOW ARM BAND AND SOCKS IN PLACE. HOURLY ROUNDING COMPLETED FOR PT SAFETY.
--- NOTE | 2018-09-26 13:50 | EKG ---
[place] [address] ELECTROCARDIOGRAM REPORT Name: SOTO FERNANDEZ Room: [address] ADM IN [facility].#: [id number] Admission: 09/26/18 Attend Phys: Owen Sellers MD Discharge: Date of : 36 Report #: [id number] THIS REPORT FOR: //name// [facility] ED Test Date: 2018-09-26 Test Time: 02:15:20 Pat Name: SOTO FERNANDEZ Department: Room: [facility] Gender: F Insecticide Expert: : 1940 Requested By: Silvana Gutierrez Order Number: [id number] MD: Paresh Amaya Measurements Intervals [place] Rate: 70 P: 0 KS: 221 QRS: 13 QRSD: 95 T: 155 QT: 409 QTc: 442 Interpretive Statements Atrial-paced complexes Borderline prolonged [place] interval Repol abnrm suggests ischemia, diffuse leads Compared to ECG 09/08/2018 08:26:23 Atrial fibrillation no longer present Prolonged QT interval no longer present Electronically Signed On 09-26-2018 13:50:37 DESKTOP SPECIALIST by Paresh Amaya [email or web address] <ELECTRONICALLY SIGNED> By: Paresh Amaya MD, FACC 09/26/18 1350 0215 Paresh Amaya MD, [facility] /EPI
--- NOTE | 2018-09-26 15:07 | NUR ---
ASSUMED CARE OF PATIENT THIS AM AT 0730. PATIENT IS ALERT AND ORIENTED X 4. THIS AM. SHE INITIALLY DENIED PAIN WITH AM ASSESSMENT. PATIENT LATER C/O RETURNING CHRONIC BACK PAIN. TELE SHOWS A PACED RHYTHM. PATIENT WAS ON BIPAP THIS AM AT START OF SHIFT. PATIENT CHANGED TO 02 AT 3 LITERS NC. SATS MAINTAINED AT 95%. PATIENT IS VOIDING FREQUENTLY PER BEDPAN. SHE IS TAKING HER DIET WELL. SHE REMAINS AFEBRILE THIS SHIFT. IV FLUIDS DISCONTINUED PER ORDER. DAUGHTER IS IN AT THE BEDSIDE THIS AFTERNOON. BILATERAL SCDS PLACED. PATIENT REPOSITIONED Q 2 HR. RESTING AT THIS TIME. CALL LIGHT IS IN REACH AND BED ALARM IS ON. NO FALLS OR INJURY.
[2018-09-27] VITALS (7 sets, daily range): BP systolic 78–107; BP diastolic 33–60
[2018-09-27 05:23] LABS: HEMATOCRIT 26.2 % (37.0-47.0); HEMOGLOBIN 8.6 gm/dL (12.0-15.0); MCH 28.6 pg (26.0-34.0); MCHC 32.6 g/dL (28.0-37.0); MCV 87.7 fL (80.0-100.0); MPV 10.6 fl. (7.2-11.1); RBC 2.99 mil/uL (4.20-5.00); RDW-CV 20.2 % (10.5-14.5); WBC 6.1 thou/uL (4.0-11.0)
[2018-09-27 05:43] LABS: BE 10.5 mmol/L (-2 to +3); HCO3 35.9 mmol/L (22.0-26.0); PO2 75.7 mmHg (75.0-100.0); pH 7.447 (7.340-7.450)
[2018-09-27 05:45] LABS: PCO2 53.2 mmHg (35.0-45.0)
[2018-09-27 05:59] LABS: CALCIUM 7.9 mg/dL (8.5-10.1); CREATININE 0.9 mg/dL (0.6-1.3)
--- NOTE | 2018-09-27 08:43 | NUR ---
RECEIVED REPORT AND ASSUMED CARE AT 1900. BP LOW, OTHERWISE VSS. CARDIAC MONITORING IN PLACE. PT DENIES ANY COMPLAINTS OF PAIN. ASSESSMENT COMPLETED CHARTED. DISCUSSED PLAN OF CARE WITH PT, VERBALIZED UNDERSTANDING. BED LOCKED IN LOWEST POSITION, CALL LIGHT WITHIN REACH. POSITION CHANGED EVERY TWO HOURS, HEELS OFF LOADED. PT ON BIPAP AT [facility]. HOURLY ROUNDING COMPLETED AND ALL NEEDS MET. NURSING WILL CONTINUE TO MONITOR
--- NOTE | 2018-09-27 15:20 | NUR ---
DISCHARGE PLANNE SPOKE TO THE PATIENT AND HER DTR TO DISCUSS DISCHARGE PLANNING NEEDS. PATIENT IS A LTC RESIDENT AT [facility] AND THE PLAN IS TO HAVE THE PATIENT RETURN THERE AT D/C. D/C QUALITY TECH SPOKE TO LIZZY WITH [facility] AND SHE INFORMS THAT THE FACILTIY IS ABLE TO ACCEPT THE PATIENT AT D/C. CM WILL REMAIN AVIALABLE TO ASSIST AND FOLLOW NEEDED.
--- NOTE | 2018-09-27 16:01 | NUR ---
INSTRUCT PT ON THE USE OF INCENTIVE SPIROMETER. PT ABLE TO USE WELL.
[2018-09-27 17:18] LABS: CALCIUM 7.9 mg/dL (8.5-10.1); CREATININE 0.9 mg/dL (0.6-1.3); MAGNESIUM 1.7 mg/dL (1.8-2.4); POTASSIUM 3.2 mmol/L (3.5-5.1)
--- NOTE | 2018-09-27 18:38 | NUR ---
ABLE TO WEAN PT DOWN TO 3LNC HUMIDIFIED.
[2018-09-28] VITALS: BP 93/41
[2018-09-28 04:00] VITALS: BP 108/48
[2018-09-28 05:12] LABS: CALCIUM 8.1 mg/dL (8.5-10.1); CREATININE 0.7 mg/dL (0.6-1.3); MAGNESIUM 1.8 mg/dL (1.8-2.4)
[2018-09-28 05:18] LABS: POTASSIUM 4.9 mmol/L (3.5-5.1)
--- NOTE | 2018-09-28 06:05 | NUR ---
ASSUMED PT CARE AT 1930, PT IS A&OX3, NO CONCEPT OF TIME. PT IS TRACING MA PACED ON THE MONITOR, ON 3L NC AND BIPAP AT NOC. PT WORE HER BIPAP MOST OF THE NIGHT. PT DENIES ANY PAIN OR NEEDS AT THIS TIME, OCCASIOANLLY VOIDS PER THE BEDPAN. BED IN LOW POSITION, CALLLIGHT IN REACH, BED ALARM ON, YELLOW ARM BAND AND SOCKS IN PLACE. HOURLY ROUDNING COMPLETED FO RPT SAFETY.
[2018-09-28 08:45] VITALS: BP 118/52
--- NOTE | 2018-09-28 10:37 | NUR ---
ASSUMED CARE OF PT THIS AM AROUND 07- AIRLINE CAPTAIN IN PLACE ORDERED, TRACING A PACED WITH NOTED PACEMAKER- UPON ASSESSMENT PT NOTED TO BE RESTING IN BED, FAMILY AT SIDE ASSISTING WITH BREAKFAST- PT A&O X3 WITH FORGETFULLNESS NOTED-BED REST IN PLACE WITH Q 2HOUR TURNS IN PLACE INDICATED- LCTA, RESP EVEN AND UN-LABORED- VSS, O2 SAT 92% ON 4L VIA NC- ABDOMEN SOFT/ROUND/NON-TENDER, BS X4 QUADS- LAST BM REPORTED 09/27/18- IV NOTED TO RIGHT WRIST INTACT AND SL- FAIR PO INTAKE NOTED THIS AM-PT DENIES ANY C/O PAIN/DISCOMFORT AT THIS TIME- CALL LIGHT AND PERSONAL BELONGINGS WITH IN REACH- HOURLY ROUNDS IN PLACE R/T SAFETY/NEEDS- ALL NEEDS MET AT THIS TIME-WCTM
[2018-09-28 12:00] VITALS: BP 98/48
[2018-09-28 16:00] VITALS: BP 98/48
--- NOTE | 2018-09-28 16:06 | NUR ---
PT CURRENTLY RESTING IN BED, EYES CLOSED- FAIR PO INTAKE NOTED THIS SHIFT WITH MEALS-TACK PULLER MACHINE IN PLACE AND CONTINUED ORDERED, TRACING A PACED- IV TO RIGHT WRIST INTACT AND SL- CONTINUES ON 4L VIA NC- Q [address] INDICATED-FREQUENT CHECKS IN PLACE R/T SAFETY/NEEDS- ALL NEEDS MET AT THIS TIME-WCTM
[2018-09-28 20:00] VITALS: BP 108/57
[2018-09-29] VITALS: BP 107/52
[2018-09-29 04:00] VITALS: BP 98/53
[2018-09-29 05:58] LABS: HEMATOCRIT 27.4 % (37.0-47.0); HEMOGLOBIN 8.9 gm/dL (12.0-15.0); MCH 28.7 pg (26.0-34.0); MCHC 32.6 g/dL (28.0-37.0); MCV 88.1 fL (80.0-100.0); NUCLEATED RBCS 0 /100WBC; PLATELET COUNT* 124 thou/uL (150-400); RBC 3.11 mil/uL (4.20-5.00); RDW-CV 20.6 % (10.5-14.5); WBC 8.6 thou/uL (4.0-11.0)
[2018-09-29 06:15] LABS: ALBUMIN 2.5 g/dL (3.4-5.0); CALCIUM 8.2 mg/dL (8.5-10.1); CREATININE 0.9 mg/dL (0.6-1.3); POTASSIUM 4.4 mmol/L (3.5-5.1); TOTAL BILIRUBIN 0.5 mg/dL (<0.1-1.0); TOTAL PROTEIN 6.4 g/dL (6.4-8.2)
[2018-09-29 08:04] VITALS: BP 105/58
--- NOTE | 2018-09-29 08:26 | NUR ---
RECEIVED REPORT AND ASSUMED CARE AT 1900. VSS. CARDIAC MONITORING IN PLACE. PT DENIES ANY COMPLAINTS OF PAIN. ASSESSMENT COMPLETED CHARTED. DISCUSSED PLAN OF CARE WITH PT. VERBALIZED UNDERSTANDING. PT BEDREST, ON 3.5L NC, BIPAP AT [facility]. BED LOCKED IN LOWEST POSITION, CALL LIGHT WITHIN REACH. BED ALARM ON. POSITION CHANGED EVERY TWO HOURS, HEELS OFF LOADED. HOURLY ROUNDING COMPLETED ADN ALL NEEDS MET. NURSING WILL CONTINUE TO MONITOR
[2018-09-29 09:15] LABS: ABSOLUTE LYMPHOCYTES 0.2 thou/uL (0.8-5.3); ABSOLUTE MONOCYTES 0.1 thou/uL (0.0-1.2); ABSOLUTE NEUTROPHILS 8.3 thou/uL (1.6-8.1); PLATELET ESTIMATE ADEQUATE
--- NOTE | 2018-09-29 09:30 | NUR ---
ASSUMED CARE OF PT THIS AM AROUND 0715- THERMOSTAT MAKER IN PLACE ORDERED, TRACING A-PACED- UPON ASSESSMENT PT NOTED TO BE RESTING IN BED- PT A&O X3 WITH NOTED FORGETFULLNESS- CONTINENT VS INCONTINENT OF BOWEL AND BLADDER, USING BED FERRELL- BED REST IN PLACE WITH Q 2 HOUR TURNS INDICATED-SET UP WITH MEALS, GOOD PO INTAKE NOTED THIS AM WITH BREAKFAST- LCTA, RESP EVEN AND UN-LABORED- VSS, O2 SAT 92% ON 3L VIA NC THIS AM- ABDOMEN SOFT/ROUND/NON-TENDER, BS X4 QUADS- LAST BM REPORTED THIS AM- IV NOTED TO RIGHT WRIST INTACT AND SL- PT DENIES ANY C/O PAIN/DISCOMFORT AT THIS TIME- CALL LIGHT AND PERSONAL BELONGINGS WITH IN REACH- HOURLY ROUNDS IN PLACE R/T SAFETY/NEEDS- ALL NEEDS MET AT THIS TIME-WCTM
[2018-09-29 11:44] VITALS: BP 111/55
--- NOTE | 2018-09-29 12:15 | NUR ---
Nutrition: Pt was seen for pressure ulcer risk on coccyx. Admitted with SOA, PNA. Eating 50% of meals. H/o dementia, HTN, GERD, chronic anemia, afib. Pt is forgetful. Wt: 138#. Fiber restricted diet. Labs: BG 200, alb 2.5, prealb 15.9. RD will order Glucerna shake for added protein. Mild risk.
[2018-09-29 15:43] VITALS: BP 113/53
--- NOTE | 2018-09-29 17:05 | NUR ---
PT CURRENLTY RESTING IN BED, WATCHING TV- MIXING TECHNICIAN IN PLACE ORDERED, TRACING A-PACED- IV TO RIGHT FA INTACT AND SL- GOOD PO INTAKE NOTED WITH MEALS THIS SHIFT- ST HERE TO EVAL THIS SHIFT PRESCIBED WITH NO CHANGES REPORTED- Q 2HOUR TURNS IN PLACE INDICATED, BARRIOR CREAM APPLIED INDICATED- ALL NEEDS MET AT THIS TIME-WCTM
[2018-09-29 19:50] VITALS: BP 123/71
[2018-09-30] VITALS: BP 116/60
[2018-09-30 04:00] VITALS: BP 130/68
--- NOTE | 2018-09-30 04:19 | NUR ---
RECIEVED REPORT AND ASSUMED CARE AT 1900. BUILDING ECONOMIST IN PLACE. VITAL SIGNS ARE STABLE. PT IS BEDREST AND USES BEDPAN, SHE IS INCONTINENT AT TIMES OF BLADDER. PT HAD SOME LOWER LEFT LEG PAIN AND PRN PAIN MEDS GIVEN ORDERED. ASSESSMENT COMPLETED AND DISCUSSED PLAN OF CARE AND PT UNDERSTANDS. BED LOCKED, AND CALL LIGHT WITHIN REACH. FALL PRECAUTIONS IN PLACE. HOURLY ROUNDING DONE AND ALL NEEDS MET. NURSING WILL CONTINUE TO MONITOR.
[2018-09-30 07:48] VITALS: BP 124/67
--- NOTE | 2018-09-30 09:13 | NUR ---
ASSUMED CARE OF PT THIS AM AROUND 0715- ACCOUNTING SUPERVISOR IN PLACE ORDERED, TRACING V-DLFGN-[id number] ASSESSMENT PT NOTED TO BE RESTING IN BED, EYES CLOSED- PT A&O X4, WITH FORGETFULLNESS NOTED- CONTINENT VS INCONTINENT OF BOWEL AND BLADDER, USING BED FERRELL- BED REST WITH Q 2HOUR TURNS IN PLACE INDICATED- LCTA, DIMINISHED IN BASES- RESP EVEN AND UN-LABORED- VSS, O2 SAT 93% ON 3L VIA NC- ABDOMEN SOFT/ROUND/NON-TENDER, BS X4 QUADS- LAST BM REPORTED IN PRIOR SHIFT-GOOD PO INTAKE NOTED THIS AM WITH BREAKFAST- IV NOTED TO RIGHT WRIST INTACT AND SL-PT DENIES ANY C/O PAIN/DISCOMFORT AT THIS TIME- CALL LIGHT AND PERSONAL BELONGINGS WITH IN REACH- HOURLY ROUNDS IN PLACE R/T SAFETY/NEEDS- ALL NEEDS MET AT THIS TIME-WCTM
--- NOTE | 2018-09-30 09:58 | NUR ---
Pt discharging back to [facility] today, Pt has used all of her skilled days. Faxed dc orders. Chart copied. Nurse report number provided, [phone]. Facility to orange picking supervisor Pt, awaiting dc time. CM will update Pt's dtr of disposition. Following.
[2018-09-30] MEDS ORDERED: ALBUTEROL2.5 MG/31 INH (10:51)
[2018-09-30] MEDS ORDERED: LEVAQUIN 500 M500 M2 PO (10:52)
[2018-09-30 11:54] VITALS: BP 103/62
--- NOTE | 2018-09-30 12:15 | NUR ---
ORDERS RECIEVIED THIS SHIFT FOR OKAY TO D/C BACK TO [facility] THIS SHIFT- IV TO RIGHT FA D/C'D ALONG WITH TELEVISION AND RADIO REPAIRER PRIOR TO D/C- D/C TEACHING/EDUCATION GIVEN TO PT PRIOR TO D/C WITH ALL QUESTIONS AND CONCERNS ADDRESSED PRIOR TO D/C- REPORT CALLED TO SHIRLEY GIRON AT [facility] WITH ALL QUESTIONS AND CONCERNS ADDRESSED- BELONGINGS PACKED ADN ACCOUNTED FOR PER TECH AND DAUGHTER- PT UP DRESSED IN BED IN BED SIDE RECLINER AWAITING W/C VAN TO [facility] PASTEUR[employer]ER FOR TRANSPORTAION PLANNED TO BE HERE AT 1300- ALL NEEDS MET AT THIS TIME-WCTM
== END 2018-09-30 13:00 | DRG 177 ==
LOC: M.ERS 01:39 → M.TBA-ER 03:31 → M.2W 03:31
PROVIDERS: Emergency Medicine; Internal Medicine
PROC: 5A09357 Assistance with Respiratory Ventilation, Less than 24 Consecutive Hours, Continuous Positive Airway Pressure (ICD-10-PCS; principal; 2018-09-26)
PROC: 5A09357 Assistance with Respiratory Ventilation, Less than 24 Consecutive Hours, Continuous Positive Airway Pressure (ICD-10-PCS; 2018-09-28)
PROC: 5A09357 Assistance with Respiratory Ventilation, Less than 24 Consecutive Hours, Continuous Positive Airway Pressure (ICD-10-PCS; 2018-09-29)
PROC: 5A09357 Assistance with Respiratory Ventilation, Less than 24 Consecutive Hours, Continuous Positive Airway Pressure (ICD-10-PCS; 2018-09-30)
DX: J69.0 Pneumonitis due to inhalation of food and vomit (principal); J96.21 Acute and chronic respiratory failure with hypoxia; I50.43 Acute on chronic combined systolic (congestive) and diastolic (congestive) heart failure; F03.90 Unspecified dementia, unspecified severity, without behavioral disturbance, psychotic disturbance, mood disturbance, and anxiety; F31.9 Bipolar disorder, unspecified; I48.91 Unspecified atrial fibrillation; E03.9 Hypothyroidism, unspecified; K21.9 Gastro-esophageal reflux disease without esophagitis; I11.0 Hypertensive heart disease with heart failure; M81.0 Age-related osteoporosis without current pathological fracture; Z86.73 Personal history of transient ischemic attack (TIA), and cerebral infarction without residual deficits; Z90.710 Acquired absence of both cervix and uterus; Z90.49 Acquired absence of other specified parts of digestive tract; Z90.12 Acquired absence of left breast and nipple; Z98.49 Cataract extraction status, unspecified eye; Z95.0 Presence of cardiac pacemaker; Z88.0 Allergy status to penicillin; Z88.2 Allergy status to sulfonamides

== ENCOUNTER 2018-10-18 18:13 | Inpatient (IN) | payer MEDICARE, BC ==
[~2018-10-18] VITALS: Ht 154.9 cm; Wt 61.7 kg
[~2018-10-18 18:13] MED LIST changes: +ALBUTEROL2.5 MG/31 INH; +LEVAQUIN 500 M500 M2 PO
[2018-10-18 18:19] VITALS: BP 155/119
[2018-10-18] MEDS ORDERED: PROPRANOLOL 1010 MG PO (18:34)
[2018-10-18] MEDS ORDERED: FLORASTOR250 MG PO (18:34)
[2018-10-18] MEDS ORDERED: SENNA8.6 MG PO (18:34)
[2018-10-18] MEDS ORDERED: NORCO 5-325 TA1 EACH PO (18:34)
[2018-10-18] MEDS ORDERED: AUGMENTIN 875-1 EACH (18:35)
[2018-10-18 18:53] LABS: HEMATOCRIT 33.7 % (37.0-47.0); HEMOGLOBIN 10.3 gm/dL (12.0-15.0); MCH 26.9 pg (26.0-34.0); MCHC 30.7 g/dL (28.0-37.0); MCV 87.6 fL (80.0-100.0); MPV 10.3 fl. (7.2-11.1); NUCLEATED RBCS 0 /100WBC; PLATELET COUNT* 227 thou/uL (150-400); RBC 3.84 mil/uL (4.20-5.00); RDW-CV 20.3 % (10.5-14.5)
[2018-10-18 19:02] LABS: ANION GAP 6 mmol/L (7-16); BUN 16 mg/dL (7-18); CALCIUM 8.8 mg/dL (8.5-10.1); CHLORIDE 100 mmol/L (98-107); CO2 37 mmol/L (21-32); CREATININE 1.2 mg/dL (0.6-1.3); GLUCOSE 191 mg/dL (70-99); POTASSIUM 3.7 mmol/L (3.5-5.1); PROTIME 10.4 Seconds (9.20-11.50); SODIUM 143 mmol/L (136-145)
[2018-10-18 19:12] LABS: ALBUMIN 3.1 g/dL (3.4-5.0); ALKALINE PHOSPHATASE 104 U/L (46-116); LIPASE 47 U/L (73-393); MAGNESIUM 1.7 mg/dL (1.8-2.4); NT-PRO BRAIN NAT PEPTIDE 2775 pg/mL (<300); SGOT 24 U/L (15-37); SGPT 14 U/L (30-65); TOTAL BILIRUBIN 0.7 mg/dL (<0.1-1.0); TOTAL PROTEIN 7.2 g/dL (6.4-8.2); TROPONIN-I LEVEL <0.06 ng/mL (<0.06)
[2018-10-18 19:14] LABS: ABSOLUTE EOSINOPHILS 0.1 thou/uL (0.0-0.7); ABSOLUTE MONOCYTES 0.7 thou/uL (0.0-1.2); ABSOLUTE NEUTROPHILS 10.3 thou/uL (1.6-8.1); ATYPICAL LYMPHS 4 %
[2018-10-18 19:15] LABS: ANISOCYTOSIS 1+; HYPOCHROMASIA 1+; PLATELET ESTIMATE ADEQUATE
[2018-10-18 19:34] VITALS: BP 111/59
[2018-10-18 19:50] VITALS: BP 119/48
[2018-10-18 23:18] LABS: URINE BILIRUBIN NEGATIVE (Negative); URINE BLOOD NEGATIVE (Negative); URINE CLARITY CLEAR; URINE COLOR YELLOW; URINE GLUCOSE-RANDOM NEGATIVE (Negative); URINE KETONES NEGATIVE (Negative); URINE LEUKOCYTES NEGATIVE (Negative); URINE NITRITE NEGATIVE (Negative); URINE PROTEIN NEGATIVE (Negative); URINE SPECIFIC GRAVITY <= 1.005 (1.005-1.030); URINE UROBILINOGEN 0.2 E.U./dl (0.2-1.0)
[2018-10-19] VITALS (8 sets, daily range): BP systolic 79–127; BP diastolic 37–69
--- NOTE | 2018-10-19 03:04 | NUR ---
TRANSFER FROM ED AT 1950. RECIEVED REPORT AND ASSUMED CARE. BLOCK LAYER IN PLACE. BP LOWER DISTOLIC, OTHER THAN THAT VITAL SIGNS STABLE. PT UP WITH 1-2 PERSON ASSIST, BED REST FOR MY SHIFT. ALCAZAR CATH ORDERED AND INSERTED. PT DENIES ANY PAIN. ASSESSMENT COMPLETED, DISCUSSED PLAN OF CARE, PT AND DAUGHTER UNDERSTAND. BED LOCKED AND CALL LIGHT WITHIN REACH. FALL PRECAUTIONS IN PLACE. HOURLY ROUNDING DONE AND ALL NEEDS MET. NURSING WILL CONTINUE TO MONITOR.
[2018-10-19 05:24] LABS: ABSOLUTE LYMPHOCYTES 0.7 thou/uL (0.8-5.3); ABSOLUTE MONOCYTES 0.1 thou/uL (0.0-1.2); ABSOLUTE NEUTROPHILS 7.5 thou/uL (1.6-8.1); BASOPHILS 0.1 %; HEMATOCRIT 27.7 % (37.0-47.0); LYMPHOCYTES 8.6 %; MCH 28.5 pg (26.0-34.0); MCHC 32.5 g/dL (28.0-37.0); MCV 87.7 fL (80.0-100.0); MONOCYTES 1.5 %; MPV 10.6 fl. (7.2-11.1); NUCLEATED RBCS 0 /100WBC; PLATELET COUNT* 181 thou/uL (150-400); POLYS 89.8 %; RBC 3.15 mil/uL (4.20-5.00); RDW-CV 19.9 % (10.5-14.5); WBC 8.3 thou/uL (4.0-11.0)
[2018-10-19 05:27] LABS: CALCIUM 8.3 mg/dL (8.5-10.1); CREATININE 1.1 mg/dL (0.6-1.3); MAGNESIUM 1.7 mg/dL (1.8-2.4); POTASSIUM 3.6 mmol/L (3.5-5.1)
--- NOTE | 2018-10-19 11:08 | NUR ---
3580 ASSUMED CARE OF PATIENT. PLEASE SEE DOCUMENTED ASSESSMENT. PT INCONTINENT OF LARGE AMOUNT OF STOOL. CURRENTLY ON BIPAP
--- NOTE | 2018-10-19 11:48 | NUR ---
MET WITH PT AND SPOKE WITH SUKHDEEP/YARELI WHO IS DPOA OVER THE PHONE. PT IS LTC RESIDENT AT [facility], PLAN IS FOR HER TO RETURN THERE. SPOKE WITH LIZZY/UZAIR, THEY WILL ACCEPT BACK AT [place]. LIZZY STATED PT IS OUT OF SNF DAYS, THEY WILL ACCEPT BACK LTC. PT IS ON O2 AND USES BIPAP AT NIGHT THERE, IS W/C BOUND. COPY OF DPOA AND OUTSIDE DNR ON CHART, YARELI CONFIRMED PT IS DNR. SHE HAS BEEN ON [facility] IN THE PAST BUT YARELI STATES 'I TOOK HER OFF OF THAT RIGHT AWAY.' EXPLAINED CM ROLE AND WILL FOLLOW
--- NOTE | 2018-10-19 16:23 | EKG ---
[place] [address] ELECTROCARDIOGRAM REPORT Name: SOTO FERNANDEZ Room: [address] ADM IN .R.#: [id number] Admission: 10/18/18 Attend Phys: Sebas Walden MD Discharge: Date of : 36 Report #: [id number] THIS REPORT FOR: //name// [facility] ED Test Date: 2018-10-18 Test Time: 18:36:36 Pat Name: SOTO FERNANDEZ Department: Room: [facility] Gender: F Pastry Cook Helper: KAUSHAL : 1940 Requested By: Jorge L Varner Order Number: [id number] MD: Hi Doe Measurements Intervals [place] Rate: 70 P: W[place]: 58 QRS: 12 QRSD: 91 T: 164 QT: 472 QTc: 510 Interpretive Statements Atrial-paced complexes Repol abnrm suggests ischemia, anterolateral Prolonged QT interval Compared to ECG 09/26/2018 02:15:20 Prolonged QT interval now present Possible ischemia still present Electronically Signed On 10-19-2018 16:22:49 INTERLIBRARY LOAN SERVICES LIBRARIAN by Hi Doe [email or web address] <ELECTRONICALLY SIGNED> By: Hi Doe MD, FAC 10/19/18 1622 1836 1836 Hi Doe MD, [facility] /EPI
--- NOTE | 2018-10-19 17:42 | NUR ---
SOME PROGRESSION TOWARDS GOALS. OFF OF BIPAP THIS MORNING AND ABLE TO MAINTAIN ON 10LPM HIGH FLOW CANNULA. ATRIAL PACED. BLOOD PRESSURES REMAIN SOFT. MAG REPLACED. GOOD OUTPUT WITH DIURESIS. APPETITE IMPROVING. DAUGHTER VISITED AND ABLE TO SPEAK WITH HOSPITALIST TODAY
[2018-10-20] VITALS: BP 96/46
[2018-10-20 04:00] VITALS: BP 106/40
--- NOTE | 2018-10-20 05:13 | NUR ---
ASSUMED PT CARE @ 1930.
[2018-10-20 05:14] LABS: CALCIUM 7.3 mg/dL (8.5-10.1); CREATININE 0.9 mg/dL (0.6-1.3); MAGNESIUM 2.2 mg/dL (1.8-2.4); PHOSPHORUS* 2.7 mg/dL (2.5-4.9)
[2018-10-20 05:15] LABS: POTASSIUM 2.5 mmol/L (3.5-5.1)
--- NOTE | 2018-10-20 08:11 | NUR ---
ASSUMED PT CARE @ 193. PT A+OX4. DENIES SOA WITH O2 ON. HELD PO CARDIZEM R/T LOW BP. BP REMAINED LOW THROUGHOUT SHIFT. HR TRACING A-PACED @ 70 TRHOUGHOUT SHIFT. AM POTASSIUM 2.5. PO POTASSIUM GIVEN. DR. HALEY NOTIFIED OF CRITICAL LAB AND ORDERS RECEIVED. ORDER TO HOLD IV LASIX UNTIL POTASSIUM > OR = TO 3.0. NOTIFIED DAY SHIFT AND PHARMACY. PT TOLERATED BIPAP WHILE SLEEPING WELL. TITRATED DOWN TO 8L PER HIGH FLOW CANNULA PER RT. CALL LIGHT IN REACH. HOURLY ROUNDING FOR SAFETY.
[2018-10-20 09:00] VITALS: BP 148/96
--- NOTE | 2018-10-20 09:00 | NUR ---
ASSUMED PT. CARE AND RECEIVED REPORT AT 0730. PT. DOWN TO XRAY FIRST THING THIS MORNING. UPON RETURN PT WAS SOA. ATTEMPTED TO INCREASE O2 BACK TO 10L HFNC TO INCREASE OXYGEN LEVEL BUT PT. REMAINED IN THE LOW 80'S AND WAS VISUALLY AND EXPRESSING SOB. RT ON UNIT AND NOTIFIED. BIPAP REPLACED AT THIS TIME. FIO2 INCREASED TO 100% FOR PT. TO REACH >90%. PT. REMAINED ON BIPAP UNTIL APPROX. 1030 WHEN SHE WAS PLACED ON 15LHFNC. PT. WAS ABLE TO TAKE ORAL MEDS AT THIS TIME. PT. DAUGHTER NORMA AT BEDSIDE. FULL ASSEMENT COMPLETED, REFER TO CHARTING.
[2018-10-20 11:45] VITALS: BP 130/63
[2018-10-20 15:21] VITALS: BP 105/53
[2018-10-20 15:26] LABS: INFLUENZA A ANTIGEN None Detected (None Detect); INFLUENZA B ANTIGEN None Detected (None Detect)
--- NOTE | 2018-10-20 18:09 | EKG ---
[place] [address] ELECTROCARDIOGRAM REPORT Name: SOTO FERNANDEZ Room: [address] ADM IN .R.#: [id number] Admission: 10/18/18 Attend Phys: Sebas Walden MD Discharge: Date of : 36 Report #: [id number] THIS REPORT FOR: //name// [facility] Test Date: 2018-10-20 Test Time: 10:57:32 Pat Name: SOTO FERNANDEZ Department: Room: [address] Gender: F Language Pathologist: : 1940 Requested By: Sebas Walden Order Number: [id number] Reading MD: Marlon De Luna Measurements Intervals [place] Rate: 70 P: NE: 60 QRS: 59 QRSD: 88 T: -29 QT: 492 QTc: 531 Interpretive Statements Atrial-paced complexes Nonspecific repol abnormality, diffuse leads Prolonged QT interval Baseline wander in lead(s) V5 Compared to ECG 10/18/2018 18:36:36 Possible ischemia no longer present Electronically Signed On 10-20-2018 18:09:28 PHYSICAL SCIENCE TECHNICIAN by Marlon De Luna [email or web address] <ELECTRONICALLY SIGNED> By: Marlon De Luna MD, FACC 10/20/18 1809 1057 1057 Marlon De Luna MD, FAC /EPI
--- NOTE | 2018-10-20 18:45 | NUR ---
PT. TITRATED BACK DOWN TO 8L HFNC THROUGH OUT THE DAY BY RT, TOLERATING WELL. PT. FEBRILE AT LUNCH TIME, DR. OLIVO NOTIFIED AND NEW ORDERS RECEIVED. PT. FEVER DID BREAK WITH 1 DOSE TYLENOL. POTASSIUM REPLACED WITH REDRAW AT 3.2, PROTOCOL STARTED AGAIN AND NEW DOSE GIVEN. UPDATE GIVEN TO PT. DAUGHTER NORMA GIVEN UPDATE VIA PHONE THIS EVENING. HOURLY ROUNDING COMPLETED THROUGH OU THE DAY FOR PT. SAFETY.
[2018-10-20 20:00] VITALS: BP 118/61
[2018-10-21] VITALS: BP 123/59
[2018-10-21 04:00] VITALS: BP 100/50
[2018-10-21 05:19] LABS: HEMATOCRIT 23.2 % (37.0-47.0); HEMOGLOBIN 7.4 gm/dL (12.0-15.0); MCHC 31.8 g/dL (28.0-37.0); MCV 88.1 fL (80.0-100.0); MPV 10.6 fl. (7.2-11.1); RBC 2.63 mil/uL (4.20-5.00); RDW-CV 20.4 % (10.5-14.5)
[2018-10-21 05:25] LABS: CALCIUM 6.7 mg/dL (8.5-10.1); CREATININE 0.8 mg/dL (0.6-1.3); MAGNESIUM 1.6 mg/dL (1.8-2.4); POTASSIUM 3.7 mmol/L (3.5-5.1)
--- NOTE | 2018-10-21 06:54 | NUR ---
ASSUMED PT CARE @ 193O. PT WAS SAT IN HIGH TO MID 70'S ON NC (10-15L). PLACED PT ON BIPAP. HS LASIX GIVEN. IMPROVED RESPIRATORY STATUS. POTASSIUM REPLACEMENT GIVEN PER PROTOCOL. PT SOUNDED MORE "WET" THE NIGHT WENT ON. NOTIFIED DR KRISHNAN BEFORE HANGING IV ABX IN 250 ML. ONETIME ORDER IV LASIX GIVEN. PT IMPROVED. REPORTED SHE "FELT MUCH BETTER." NORCO GIVEN THIS AM FOR PAIN ALONG WITH MAGNESIUM REPLACEMET. CALL LIGHT IN REACH. HOURLY ROUNDING FOR SAFETY.
--- NOTE | 2018-10-21 07:25 | NUR ---
CHANGE OF SHIFT BEDSIDE REPORT GIVEN PATIENT SEEN AT BEDSIDE, IN BED RESTING ASSUMED PATIENT CARE
[2018-10-21 08:00] VITALS: BP 103/50
[2018-10-21 12:00] VITALS: BP 116/54
--- NOTE | 2018-10-21 12:24 | CON ---
[address] [address] CONSULTATION Name: SOTO FERNANDEZ Room: [address] IN M.R.#: [id number] Admission: 10/18/18 Attend Phys: Sebas Walden MD Discharge: Date of : 38 Report #: [id number] THIS REPORT FOR: //name// CC: Jorge L Walden DATE OF SERVICE: 10/18/2018 INFECTIOUS DISEASE CONSULTATION ATTENDING PHYSICIAN: Dr. Wadlen. REASON FOR EVALUATION: Febrile illness of unclear etiology. HISTORY OF PRESENT ILLNESS: Chart reviewed, patient examined. This is a 77-year-old woman, with extensive medical history, does have some degree of dementia, has widespread vasculopathy, history of O2 requiring COPD, presented with progressive dyspnea, did have somewhat productive cough, has had some intermittent fevers and over this morning, was high grade almost 103. Evaluation has been somewhat unremarkable. Chest x-ray did show bilateral infiltrates, although it is felt to be secondary to pulmonary edema. Lactic acid was elevated at 2.1, peaked at 3.1. Blood cultures were collected and they are sterile thus far. Influenza antigen was not detected and normal white count. She was empirically started on therapy with ceftriaxone. Due to the high grade fevers, this was switched to vancomycin and cefepime. She actually although she is requiring significant amounts of supplemental oxygen per nasal cannula, she is not overtly in respiratory distress. Denied significant pain related discomfort. Appetite has been somewhat diminished today, although she states she generally eats pretty well. Has not had any diarrhea. No nausea. She does note she is in facility and there has been illness including respiratory tract signs and symptoms, cough, etc. ALLERGIES: LISTED TO PENICILLIN AND SULFAMETHOXAZOLE. MEDICATIONS: Include vancomycin, cefepime, levothyroxine, pantoprazole, atorvastatin, apixaban, acetaminophen, diltiazem CD, donepezil, melatonin, multivitamin, ondansetron, risperidone, Saccharomyces, tamsulosin, venlafaxine, alprazolam, albuterol and ipratropium inhalers. PAST MEDICAL HISTORY: As noted above, history of hypertension, atrial fibrillation, cardiomyopathy, history of congestive heart failure, has a pacemaker, osteoporosis, previous compression fractures involving vertebra, vasculopathy with previous stroke, reflux, chronic anemia, bipolar disorder, hypothyroidism, [place] [address] CONSULTATION Name: SOTO FERNANDEZ Liseth Room: [address]#: [id number] Admission: 10/18/18 Attend Phys: Sebas Walden MD Discharge: Date of : 38 Report #: [id number] SOCIAL HISTORY: Nonsmoker, no ethanol. FAMILY HISTORY: Noncontributory. REVIEW OF SYSTEMS: Otherwise, unremarkable 10-point review of systems unless otherwise noted above inn history of present illness. PHYSICAL EXAMINATION: GENERAL: She is in mild to moderate distress. She is pleasant, cooperative, some degree of encephalopathy. Has nasal cannula oxygen in place with high flow. HEENT: Extraocular muscles intact. Oropharynx without notable lesions. NECK: Supple. LUNGS: Scattered coarse breath sounds bilaterally. HEART: Regular. I do not appreciate murmur. ABDOMEN: Soft, nontender, nondistended. EXTREMITIES: Has 1+ edema. GENITOURINARY: Deferred. RECTAL: Deferred. LABORATORY DATA: Chest x-ray noted with bilateral diffuse infiltrates. Electrolytes: Sodium 143, potassium 3.7, chloride 100, bicarbonate is 37, anion gap of 6, BUN and creatinine 16 and 1.2, albumin of 3.1. Total protein 7.2. Lactic acid of 2.1. CBC: White count of 13.0, H and H 10.3 and 33.7 and platelets of 227. Urinalysis unremarkable. TSH is 3.057. Blood cultures sterile thus far. ASSESSMENT: Febrile illness. The patient is in a facility, certainly has compromised respiratory status, some acute on chronic issue. Whether this is multifactorial is unclear. She does have potential exposure given her surroundings. We will continue empiric antimicrobial therapy. If she defervesces and seems to improve, we will just pursue that course of treatment weaning off until oral therapy. Continue efforts to wean down oxygen to her baseline of 3 liters, certainly may be viral in etiology. I do not see evidence of focal area of pyogenic infection at this point. <ELECTRONICALLY SIGNED> By: Kaiser Preston MD 10/21/18 1224 1601 [id number] Preston MD /nt
[2018-10-21 16:00] VITALS: BP 108/47
[2018-10-22] VITALS: BP 127/52
[2018-10-22 04:00] VITALS: BP 112/50
--- NOTE | 2018-10-22 04:51 | NUR ---
ASSUMED PT CARE @ 1930, PT AWAKE AND RESPONDS APPROPRIATELY TO SIMPLE QUESTIONS. VSS. ON BIPAP AND IS TOLERATING IT WELL. O2 SAT IS AT 92-96%. PT. IS A-PACED PER GAS APPLIANCE SERVICER HELPER. CALL LIGHT IN PLACE. HOURLY ROUNDING DONE FOR SAFETY. KEPT CLOSELY MONITORED.
[2018-10-22 05:01] LABS: HEMATOCRIT 23.6 % (37.0-47.0); HEMOGLOBIN 7.5 gm/dL (12.0-15.0); MCH 27.8 pg (26.0-34.0); MCHC 31.9 g/dL (28.0-37.0); MCV 87.4 fL (80.0-100.0); MPV 10.9 fl. (7.2-11.1); RBC 2.7 mil/uL (4.20-5.00); RDW-CV 20.3 % (10.5-14.5); WBC 9.6 thou/uL (4.0-11.0)
[2018-10-22 05:24] LABS: CALCIUM 6.7 mg/dL (8.5-10.1); CREATININE 0.8 mg/dL (0.6-1.3); POTASSIUM 3.2 mmol/L (3.5-5.1)
--- NOTE | 2018-10-22 07:30 | NUR ---
CHANGE OF SHIFT, BEDSIDE REPORT GIVEN PATIENT SEEN AT BEDSIDE, IN BED RESTING ASSUMED PATIENT CARE
[2018-10-22 08:00] VITALS: BP 108/48
[2018-10-22 11:46] VITALS: BP 101/49; BP 149/88
--- NOTE | 2018-10-22 15:14 | NUR ---
RIGHT BASILIC VESSEL ACCESSED FOR 4 BELIZEAN SINGLE LUMEN PICC. LINE PRE-TRIMMED TO 37 CM AND ADVANCED TO THE ZERO SANTIAGO WITH NO RESISTANCE MET. UPPER ARM CICUMFERENCE ABOVE INSERTION SITE = 11". SHERLOCK MAGNET AND 3CG CONFIRMATION OF TIP TERMINATION AT THE CAVOATRIAL JUNCTION. STYLET REMOVED, INSERTION SITE DRESSED AND REPORT GIVEN TO PIA LEONE.
[2018-10-22 15:31] VITALS: BP 98/65
[2018-10-22 20:00] VITALS: BP 114/52
--- NOTE | 2018-10-22 23:54 | NUR ---
CALL TO DOCTOR REGARDING PATIENT'S NPO STATUS AND PO MEDS, NO NEW ORDERS. DOCOTR NOTIFIED OF PATIENT REQUEST FOR SLEEPING MED., DOCTOR GAVE OKAY TO GIVE ATIVAN.
[2018-10-23] VITALS: BP 98/50
[2018-10-23 04:00] VITALS: BP 146/62
--- NOTE | 2018-10-23 04:42 | NUR ---
PATIENT RESTED IN BED, NO ACUTE CHANGES. PATIENT APPEAR TO TOLERATE BIPAP WELL. PATIENT DID NOT SHOW SIGNS OF DISTRESS OR SOA. FALL PRECAUTIONS IN PLACE, CALL LGITH WITHIN REACH, HOURLY ROUNDING OBSERVED, BED ALARM ON.
[2018-10-23 08:00] VITALS: BP 128/56
[2018-10-23 11:38] VITALS: BP 138/35
[2018-10-23 14:30] LABS: HEMATOCRIT 24.7 % (37.0-47.0); HEMOGLOBIN 7.8 gm/dL (12.0-15.0); MCH 27.7 pg (26.0-34.0); MCHC 31.5 g/dL (28.0-37.0); MCV 87.8 fL (80.0-100.0); MPV 10.5 fl. (7.2-11.1); NUCLEATED RBCS 0 /100WBC; PLATELET COUNT* 169 thou/uL (150-400); RBC 2.82 mil/uL (4.20-5.00); RDW-CV 20.4 % (10.5-14.5); WBC 8.8 thou/uL (4.0-11.0)
[2018-10-23 14:46] LABS: ALBUMIN 2.3 g/dL (3.4-5.0); CALCIUM 6.2 mg/dL (8.5-10.1); CREATININE 0.9 mg/dL (0.6-1.3); POTASSIUM 3.7 mmol/L (3.5-5.1); TOTAL BILIRUBIN 0.5 mg/dL (<0.1-1.0); TOTAL PROTEIN 6.2 g/dL (6.4-8.2)
[2018-10-23 15:10] LABS: ABSOLUTE LYMPHOCYTES 0.4 thou/uL (0.8-5.3); ABSOLUTE MONOCYTES 0.3 thou/uL (0.0-1.2); ABSOLUTE NEUTROPHILS 8.1 thou/uL (1.6-8.1); PLATELET ESTIMATE ADEQUATE
[2018-10-23 15:11] LABS: ANISOCYTOSIS 2+; HYPOCHROMASIA 1+
[2018-10-23 15:57] VITALS: BP 127/58
--- NOTE | 2018-10-23 16:20 | NUR ---
PT PROGRESSING TOWARDS GOALS THIS SHIFT. STARTED REGULAR DIET WITH ASPIRATION PRECAUTIONS. PT TOLERATING WELL AT THIS TIME. PT TOLERATING HIGH FLOW NC AT 15L. WILL WEAR BIPAP WHILE SLEEPING AND PRN. POTASSIUM REPLACED THIS SHIFT. FAMILY AT BEDSIDE. AWARE OF PLAN OF CARE. NO OTHER CONCERNS AT THIS TIME. CLWR. WCTM.
[2018-10-23 20:00] VITALS: BP 128/77
--- NOTE | 2018-10-23 22:10 | NUR ---
PATIENT TOLERATED PO MEDS WELL.
[2018-10-24] VITALS: BP 152/53
--- NOTE | 2018-10-24 00:58 | NUR ---
PATIENT RESTED IN BED, NO ACUTE CHANGES. PATIENT IS NOT SHOWING SIGNS OF SOA OR DISTRESS. PATIENT IS ON BIPAP. CALL LIGHT WITHIN REACH, HOURLY ROUNDING OBSERVED, BED ALARM ON, FALL PRECAUTIONS IN PLACE.
[2018-10-24 04:00] VITALS: BP 118/48
[2018-10-24 04:07] LABS: ABSOLUTE LYMPHOCYTES 0.3 thou/uL (0.8-5.3); ABSOLUTE MONOCYTES 0.4 thou/uL (0.0-1.2); ABSOLUTE NEUTROPHILS 7.5 thou/uL (1.6-8.1); BASOPHILS 0.2 %; HEMATOCRIT 23.5 % (37.0-47.0); HEMOGLOBIN 7.5 gm/dL (12.0-15.0); LYMPHOCYTES 3.8 %; MCH 28.1 pg (26.0-34.0); MCHC 31.9 g/dL (28.0-37.0); MONOCYTES 4.6 %; MPV 10.9 fl. (7.2-11.1); NUCLEATED RBCS 0 /100WBC; PLATELET COUNT* 162 thou/uL (150-400); POLYS 91.4 %; RBC 2.67 mil/uL (4.20-5.00); RDW-CV 20.1 % (10.5-14.5); WBC 8.2 thou/uL (4.0-11.0)
[2018-10-24 04:17] LABS: ALBUMIN 2.3 g/dL (3.4-5.0); CALCIUM 6.2 mg/dL (8.5-10.1); CREATININE 0.8 mg/dL (0.6-1.3); POTASSIUM 3.3 mmol/L (3.5-5.1); TOTAL BILIRUBIN 0.5 mg/dL (<0.1-1.0)
[2018-10-24 04:26] LABS: PREALBUMIN 14.2 mg/dL (18.0-35.7)
[2018-10-24 08:53] VITALS: BP 140/68
[2018-10-24 11:49] VITALS: BP 141/64
--- NOTE | 2018-10-24 15:24 | NUR ---
PT SOMEWHAT PROGRESSING TOWARDS GOALS THIS SHIFT. ABLE TO WEAR OXYGEN AT 15L/ HFC WHILE AWAKE. BIPAP WHILE SLEEPING. PT C/O PAIN THIS SHIFT ON BACK AND GIVEN PRN HYDROCODONE. TOLERATING DIET. ASPIRATIONS PRECAUTIONS MAINTAINED. NO OTHER CONCERNS AT THIS TIME. CLWR. WCTM.
[2018-10-24 15:26] VITALS: BP 119/61
[2018-10-24 19:45] VITALS: BP 140/64
--- NOTE | 2018-10-24 23:14 | NUR ---
RECEIVED REPORT AND ASSUMED CARE AT 1900. VSS. CARDIAC MONITORING IN PLACE. PT DENIES ANY COMPLAINTS OF PAIN. ASSESSMENT COMPLETED CHARTED. PT ON BEDREST, 15 HIGH FLOW NC. BED LOCKED IN LOWEST POSITION, CALL LIGHT WITHIN REACH, BED ALARM ON. DISCUSSED PLAN OF CARE WITH PT, VERBALIZED UNDERSTANDING. WILL CONTINUE TO MONITOR FOR REMAINDER OF THE SHIFT
[2018-10-25] VITALS (10 sets, daily range): BP systolic 100–144; BP diastolic 53–98
[2018-10-25 01:19] LABS: ABSOLUTE LYMPHOCYTES 0.5 thou/uL (0.8-5.3); ABSOLUTE MONOCYTES 0.6 thou/uL (0.0-1.2); ABSOLUTE NEUTROPHILS 8.9 thou/uL (1.6-8.1); BASOPHILS 0.3 %; HEMOGLOBIN 8.2 gm/dL (12.0-15.0); LYMPHOCYTES 4.7 %; MCH 27.8 pg (26.0-34.0); MCHC 31.6 g/dL (28.0-37.0); MONOCYTES 5.6 %; MPV 10.9 fl. (7.2-11.1); NUCLEATED RBCS 0 /100WBC; PLATELET COUNT* 176 thou/uL (150-400); POLYS 89.4 %; RBC 2.96 mil/uL (4.20-5.00)
[2018-10-25 01:21] LABS: CALCIUM 7.6 mg/dL (8.5-10.1); CREATININE 0.9 mg/dL (0.6-1.3); MAGNESIUM 2.1 mg/dL (1.8-2.4)
[2018-10-25 01:23] LABS: POTASSIUM 4.4 mmol/L (3.5-5.1)
--- NOTE | 2018-10-25 11:57 | CON ---
[address] [address] CONSULTATION Name: SOTO FERNANDEZ Room: [address] IN .R.#: [id number] Admission: 10/18/18 Attend Phys: Sebas Walden MD Discharge: Date of : 38 Report #: [id number] THIS REPORT FOR: //name// CC: Jorge L Walden DATE OF SERVICE: 10/21/2018 REASON FOR CONSULTATION: Respiratory failure. HISTORY OF PRESENT ILLNESS: This is a 77-year-old female patient, resident of [facility]. She was admitted to this facility on 10/18/2018 with hypoxia. At baseline per the granddaughter at the bedside, she is on 4-5 liters oxygen and when she presented to the ER, she was severely hypoxic. She had to be placed on BiPAP. She has history of dementia and does not provide detailed history, but per the daughter, she reported that she had developed for her. The record indicated that the patient had history of dysphagia in the past, but recently, she has been cleared to start eating. There is no history to suggest aspiration at this point, although she was treated here multiple times for aspiration pneumonia. Every time she passed swallow evaluation, I would suspect she has intermittent aspiration. She was hospitalized in this facility toward the end of August for picture of aspiration pneumonia. Also 3 weeks prior to that sometime in July, she was treated for pneumonia at [facility]. REVIEW OF SYSTEMS: Twelve-point review of systems attempted with the patient and negative other than those mentioned above. However, the history is limited given the history of dementia. ALLERGIES: PENICILLIN AND SULFA. PAST MEDICAL HISTORY: Recurrent pneumonia, dysphagia, recurrent aspiration, dementia, hypertension, atrial fibrillation, CHF, status post pacemaker, degenerative joint disease, compression fracture x 2, ischemic stroke in 2018, TIA in the past. She is wheelchair bound. She has urinary retention, reflux disease, bipolar disorder and anemia. PAST SURGICAL HISTORY: Cataract surgery, hemorrhoidectomy, cholecystectomy, hysterectomy. FAMILY HISTORY: Noncontributory to above complaints reviewed. SOCIAL HISTORY: Never smoked. Does not drink alcohol. Does not abuse drugs, wheelchair bound, history of dementia, [place] [address] CONSULTATION Name: SOTO FERNANDEZ Room: [address]#: [id number] Admission: 10/18/18 Attend Phys: Sebas Walden MD Discharge: Date of : 38 Report #: [id number] HOME MEDICATIONS: Reviewed per documentation within the [facility]. PHYSICAL EXAMINATION: VITAL SIGNS: When I saw her, she was on 15 liters oxygen by nasal cannula. GENERAL: Overall, comfortable with slight increased work of breathing. Speaks in full sentences. HEENT: Head normocephalic, atraumatic. Pupils are reactive to light. Oral cavity, moist mucous membrane. Mallampati of 2. External ear looks healthy and normal. Nasal cavity patent passage. NECK: Full range of movement. Nontender. CHEST: Diminished air movement bilaterally with rhonchi and course of breathing. No wheezes. Symmetrical expansion Nontender. HEART: S1, S2, no murmur. ABDOMEN: Benign, soft, lax, nontender, positive bowel sounds. EXTREMITIES: Lower extremities: No edema, no calf tenderness. SKIN: Normal for age and race. Some occasional bruises. PSYCHIATRIC: Mood and affect, unable to evaluate. NEUROLOGIC: Moving 4 extremities. LYMPHATICS: No palpable lymph node. LABORATORY DATA: White blood count 13,000, hemoglobin 10.3, platelet of 227. INR of 1, creatinine of 0.8, BUN of 12, bicarbonate of 35, potassium 3.7, sodium 141. Her BNP elevated 2775. Her INR of 1. Influenza A and B rapid screen negative. She had 2 sets of chest x-ray. The chest x-ray showing bilateral interstitial infiltrate. CURRENT MEDICATIONS: She received 2 doses of Lasix in the last 12 hours. She is on vancomycin and scheduled Lasix b.i.d. She is on cefepime, atorvastatin, scheduled nebulization treatments among other medication. IMPRESSION: 1. Vmzrh-jl-zshqjxd hypoxic respiratory failure; at baseline, she is on 5 liters oxygen. 2. Pneumonia. 3. Pulmonary infiltrate. 4. Suspect aspiration, although she passed swallow evaluation. I suspect this is intermittent. 5. History of dementia. PLAN: 1. At this point, we will continue the patient on antibiotic, continue scheduled nebulization treatment. Wean oxygen down as tolerated. Discussed with RN and RT. She needs to be on aspiration precautions, sits up 90-degree when she eats. Continue diuresis, monitor electrolytes, keep a negative fluid balance, use BiPAP p.r.n. [facility] [address] [facility] [place] [address] CONSULTATION Name: SOTO FERNANDEZ Room: M.232-P ADM IN M.R.#: [id number] Admission: 10/18/18 Attend Phys: Sebas Walden MD Discharge: Date of : 38 Report #: [id number]. Overall, prognosis guarded. We will continue to follow along with you. Repeat chest imaging for followup. Thank you for the consult. Discussed with RT, RN and the patient's granddaughter. <ELECTRONICALLY SIGNED> By: Jae Oates MD 10/25/18 1157 1053 [id number] Oates MD /nt
--- NOTE | 2018-10-25 12:56 | NUR ---
CONTINUE TO FOLLOW, MET WITH PT AND DTR/YARELI WHO IS DPOA AND DISCUSSED WITH SHANDRA OLIVO AND XIMENA. PT REMAINS ON BIPAP FOR MOST OF THE DAY AT THIS TIME. HAS REORDERED DIET FOR PT. TALKED WITH PT AND DTR ABOUT GOALS OF CARE. DTR VOICED THAT SHE WANTS PT TO BE COMFORTABLE AND BE ABLE TO EAT, VERBALIZED SHE UNDERSTOOD THAT PT IS RISK OF ASPIRATION AND THAT IT'S A 'DOUBLE EDGED SWORD.' DTR STATED SHE WANTED TO WAIT A 'COUPLE' MORE DAYS TO SEE HOW THE ANTIBX WERE WORKING AND MAKE FURTHER DECISIONS THEN. TALKED WITH HER ABOUT THE PREVIOUS HOSPICE EXPERIENCE SHE HAD REFERRED TO IN OUR INITIAL CONVERSATION. SHE STATED THAT PT HAD BEEN ON [facility] AND DTR HAD AN ISSUE WITH A NURSE, NOT THE HOSPICE. SHE SEEMED OPEN TO OTHER HOSPICE OPTIONS IF APPROPRIATE. SUPPORT PROVIDED AND MADE HER AWARE CM ABLE TO ASSIST. WILL CONTINUE TO FOLLOW
--- NOTE | 2018-10-25 13:30 | NUR ---
Nutrition: Pt assessed for LOS. Admitted with PNA, SOA. H/o dementia, HTN, GERD. On bipap. 2gm Na diet. Fluid overload. Wt is at usual of 134#. alb 2.3, prealb 16.6, BG 190. Pt has had hospice in past. No nutrition interventions needed today. Mild nutrition risk. If meal intake is <50%, offer oral supplement. Will follow po intake, wt, labs 10/28/18.
--- NOTE | 2018-10-25 15:57 | EKG ---
[place] [address] ELECTROCARDIOGRAM REPORT Name: SOTO FERNANDEZ Room: [address] ADM IN [facility].#: [id number] Admission: 10/18/18 Attend Phys: Sebas Walden MD Discharge: Date of : 38 Report #: [id number] THIS REPORT FOR: //name// [facility] Test Date: 2018-10-25 Test Time: 15:00:05 Pat Name: SOTO FERNANDEZ Department: Room: [address] Gender: F Financial Service Rep: JMAGERS : 1940 Requested By: Sebas Walden Order Number: [id number] Reading MD: Paresh Amaya Measurements Intervals Mcdonald Rate: 150 P: LA: QRS: -5 QRSD: 86 T: 167 QT: 289 QTc: 457 Interpretive Statements Atrial fibrillation with rapid V-rate Repolarization abnormality, prob rate related Compared to ECG 10/20/2018 10:57:32 Atrial fibrillation noted Electronically Signed On 10-25-2018 15:57:22 AUTO AIR CONDITIONING INSTALLER by Paresh Amaya [email or web address] <ELECTRONICALLY SIGNED> By: Paresh Amaya MD, [facility] 10/25/18 1557 1500 1500 Paresh Amaya MD, FAC /EPI
--- NOTE | 2018-10-25 18:17 | NUR ---
0700 ASSUMED CARE OF PT. PT ON BI-PAP D/T DECREASE IN SATS TO WHILE ON 15 LITERS VIA NASAL CANULA. PT ANXIOUS AT TIMES WITH TREMORS NOTED. IV ATIVAN ADMINISTERED. DURING PT ASSESSMENT PT WILL OPEN EYES WITH LIGHT STIMULI BUT FALLS BACK TO SLEEP, UNABLE TO TAKE AM MEDICATIONS. 1300 PT AWAKE REQUESTING TO HAVE A DRINK. DR OLIVO GAVE ORDER FOR PT TO BE ABLE TO EAT MECHANICAL SOFT FOODS AND HAVE A DRINK NEEDED. BIPAP REMOVED AT NC PLACED AT 15 LITERS.PT TOLERATED WELL FOR A SHORT TIME, BEGAN DESATING TO 87-89% ON 15L. RT PAGED FOR ASSESSMENT. 1500 PT HEART RATE ELEVATED AND RYTHMN ABNORMAL ON MONITOR. HEART RATE READING 160'S. DR. OLIVO IN HOUSE AND ORDER RECEIVED- 10MG CARDIAZEM IV PUSH STAT ADMINISTERED.
--- NOTE | 2018-10-25 18:51 | NUR ---
1545 PT HEART RATE REMAINS ELEVATED IN 140'S, DILTIAZEM DRIP INCREASED TO 15ML/HR PER ORDERS. PT CONT ON BIPAP. CURRENTLY IN ROOM RESTING WITH EYES CLOSED.
--- NOTE | 2018-10-25 18:54 | NUR ---
1630 PT HEART RATE 121 ON MONITOR. B/P 124/77 AND STABLE, DILTIAZEM DRIP INCEASED TO 20ML/HR PER ORDERS. FAMILY AT BEDSIDE. HOURLY ROUNDING MAINTAINED. WILL CONT TO MONITOR.
--- NOTE | 2018-10-25 23:02 | NUR ---
RECEIVED REPORT AND ASSUMED CARE AT 1900. VSS. CARDIAC MONITORING IN PLACE. PT DENIES ANY COMPLAINTS OF PAIN. ASSESSMENT COMPLETED CHARTED. PT ON BEDREST, ON CONTINUOUS BIPAP. BED LOCKED IN LOWEST POSTION, CALL LIGHT WITHIN REACH. BED ALARM ON. WILL CONTINUE TO MONITOR FOR REMAINDER OF THE SHIFT
[2018-10-26] VITALS (7 sets, daily range): BP systolic 108–136; BP diastolic 59–97
--- NOTE | 2018-10-26 10:52 | NUR ---
REPORT GIVEN TO DYAN LEONE. PT REQUEST FEMALE RN.
--- NOTE | 2018-10-26 13:47 | NUR ---
I have reviewed the documentation by DIO HOOVER from TODAY and I concur with it. NETO STONE
--- NOTE | 2018-10-26 17:22 | NUR ---
PT SOMEWHAT PROGRESSING TOWARDS GOALS THIS SHIFT. TOLERATED TIME OFF BIPAP TODAY FOR MEALS AND VISITING WITH FAMILY. PT PLACED ON 15L/HFC WHILE OFF BIPAP. PT ANXIOUS TODAY AND GIVEN PRN LORAZEPAM AND MORPHINE THROUGHOUT THIS SHIFT. PT HAD SPEECH THERAPY EVAL FOR SWALLOWING. REFER TO NOTES. NO OTHER CONCERNS AT THIS TIME. CLWR. WCTM.
[2018-10-27 04:00] VITALS: BP 111/57
[2018-10-27 06:27] VITALS: BP 123/70
--- NOTE | 2018-10-27 07:08 | NUR ---
RECEIVED REPORT AND ASSUMED CARE AT 1900. VSS. CARDIAC MONITORING IN PLACE. PT DENIES COMPLAINTS OF PAIN. ASSESSMENT COMPLETED CHARTED. PT REFUSING BIPAP FOR MAJORITY OF SHIFT. PT DID AGREE TO WEAR BIPAP FOR A FEW HOURS WITH ANXIETY MEDICATION. PT ON BEDREST, 15L HF NC WHEN NOT ON BIPAP. POSITION CHANGED EVERY TWO HOURS AND HEELS OFF LOADED. HOURLY ROUDNING COMPLETED AND ALL NEEDS MET. NURSING WILL CONTINUE TO MONITOR
[2018-10-27 08:00] VITALS: BP 110/53
--- NOTE | 2018-10-27 09:42 | NUR ---
WOUND CARE NOTE: WAS REQUESTED TO ASSESS PATIENT'S NOSE. NO REDNESS NOTED, AREA OF CONCERN HAS SINCE RESOLVED
[2018-10-27 12:00] VITALS: BP 102/64
--- NOTE | 2018-10-27 13:15 | NUR ---
DISCUSSED WITH DR OLIVO, HE IS RECOMMENDING HOSPICE. MET WITH PT'S DTR/YARELI WHO IS DPOA. SHE SPOKE WITH AND IS IN AGREEMENT. SHE DOESN'T WANT [facility] SHE HAD A NEGATIVE EXPERIENCE. OFFERED OTHER AGENCIES AND SHE PREFERS ONE THAT [facility] WORKS WITH FREQUENTLY. CALL TO [facility], SHE SUGGESTED [facility]. DTR IN AGREEEMENT. CALLED AND FAXED REFERRAL TO [facility]. HE WILL MEET WITH PT/DTR THIS AFTERNOON. ANTICIPATE DC TOMORROW BACK TO [facility] DUNNE AWARE
--- NOTE | 2018-10-27 14:22 | NUR ---
ASSUMED CARE OF PATIENT THIS AM AT 0730. PATIENT IS ALERT AND ORIENTED X 4. PATIENT C/O BACK PAIN THIS AM. PATIENT REFUSED ALL MEDICATIONS WHEN OFFERED TO HER. PATIENT MEDICATED FOR ANXIETY X 1 IV. IV ANTIBIOTIC CONTINUED. IV CARDIZEM ALSO CONTINUED. DAUGHTER IN AT THE BEDSIDE. IN TO ROUND AND ORDERS WRITTEN TO DISCHARGE TO HOSPICE TOMMORROW. ALCAZAR REMAINS TO DD. PATIENT IS TAKING SIPS OF WATER FOR DAUGHTER AT TIMES. SHE IS REFUSING SOLID FOOD. TELE SHOWS ONGOING A FIB WITH A RATE OF 110 TO 140S. WILL CONTINUE TO MONITOR.
[2018-10-27 16:00] VITALS: BP 116/64
[2018-10-27 20:00] VITALS: BP 110/71
[2018-10-28] VITALS (7 sets, daily range): BP systolic 107–141; BP diastolic 56–74
--- NOTE | 2018-10-28 05:46 | NUR ---
ASSUMED PT CARE AT 1930. NURSING ASSESSMENT COMPLETED AT START OF SHIFT. PT ANXIOUS AT START OF SHIFT, IV ATIVAN ADMINISTERED. PT CONTINUES ON IV CARDIZEM DRIP AT 20 ML/HR. HOURLY ROUNDING COMPLETED. HIGH FALL PRECAUTIONS IN PLACE, CALL LIGHT REMAINS WITHIN REACH. CONTINUES ON 15L O2 VIA HF NC. PT TO D/C TODAY WITH HOSPICE.
--- NOTE | 2018-10-28 08:38 | NUR ---
Nutrition: Follow up note - pt discharging to facility with Hospice today. Defer further nutrition at this time.
--- NOTE | 2018-10-28 10:06 | NUR ---
[facility] HERE TO EVAL PT FOR HOSPICE EQUIPMENT NEEDS. SHE IS CHECKING WITH [facility] TO BE SURE THEY CAN ACCEPT PT ON 15L O2. CALLED AND FAXED UPDATED CLINICAL TO [facility]. AWAIT FINAL ORDERS
[2018-10-28] MEDS ORDERED: IPRAT-ALBUT 0.5-3 ML INH (11:17)
[2018-10-28] MEDS ORDERED: CARDIZEM CD240 MG PO (11:18)
[2018-10-28] MEDS ORDERED: LORAZEPAM 22 MG/1 ML IV PUSH (11:19)
[2018-10-28] MEDS ORDERED: ATIVAN0.5 MG PO (11:19)
[2018-10-28] MEDS ORDERED: MSL20MG/ML PO (11:22)
[2018-10-28] MEDS ORDERED: MORPHINE 4MG/ML SYRI IVPUSH (11:23)
[2018-10-28] MEDS ORDERED: SENNA S TABLET1 EACH PO (11:24)
[2018-10-28] MEDS ORDERED: ZOFRAN SUSP4 MG/5 ML IV PUSH (11:27)
[2018-10-28] MEDS ORDERED: TRANSDERM-SCOP1 EACH TRANSDERM (11:27)
--- NOTE | 2018-10-28 13:26 | NUR ---
ASSUMED CARE OF PT AROUND 0730 THIS AM. REFER TO ASSESSMENT. PLANS INITIATED TO DC PT TO ALF ON HOSPICE. FAMILY AT BEDSIDE AND AWARE OF PLAN OF CARE. PT REQUIRING PRN IV ATIVAN FOR ANXIETY. NO OTHER CONCERNS AT THIS TIME. CLWR. WCTM.
--- NOTE | 2018-10-28 15:51 | NUR ---
JARED FROM HOSPICE HERE MEETING WITH FAMILY. DISCUSSED WITH VASU ZAIDI. MATIIT VALERIY
--- NOTE | 2018-10-28 17:33 | NUR ---
PT PROGRESSING TOWARDS GOALS THIS SHIFT. PT TO BE DISCHARGED TO [facility] AT 2000 TONIGHT. TRANSPORTATION ARRANGED. REPORT CALLED TO RECIEVING RN. ALL QUESTIONS ADDRESSED. DAUGHTER AT BEDSIDE. MANAGING ANXIETY WITH PRN MEDICATION. NO OTHER CONCERNS AT THIS TIME. CLWR. WCTM.
--- NOTE | 2018-10-28 20:24 | NUR ---
PATIENT RECEIVED ANXIETY AND SCHEDULED MEDICATION PRIOR TO TRANSPORTATION TO HOSPICE HOUSE. PATIENT'S BELONGINGS GATHERED AND SENT WITH FAMILY. ALCAZAR AND CENTRAL LINE REMAINS IN PLACED.
== END 2018-10-28 20:22 | disposition hospice, home (50) | DRG 177 ==
LOC: M.ERS 18:13 → M.TBA-ER 18:41 → M.2W 18:41 → M.ERS 18:41 → M.2W 18:41 → M.TBA-ER 19:50 → M.2W 10-28 20:22
PROVIDERS: Family Medicine; Internal Medicine; Internal Medicine Critical Care Medicine; ADMIT Family Medicine
PROC: 5A09357 Assistance with Respiratory Ventilation, Less than 24 Consecutive Hours, Continuous Positive Airway Pressure (ICD-10-PCS; principal; 2018-10-18)
PROC: 5A09357 Assistance with Respiratory Ventilation, Less than 24 Consecutive Hours, Continuous Positive Airway Pressure (ICD-10-PCS; 2018-10-20)
PROC: 02HV33Z Insertion of Infusion Device into Superior Vena Cava, Percutaneous Approach (ICD-10-PCS; 2018-10-22)
PROC: 5A09357 Assistance with Respiratory Ventilation, Less than 24 Consecutive Hours, Continuous Positive Airway Pressure (ICD-10-PCS; 2018-10-22)
PROC: 5A09357 Assistance with Respiratory Ventilation, Less than 24 Consecutive Hours, Continuous Positive Airway Pressure (ICD-10-PCS; 2018-10-23)
PROC: 5A09357 Assistance with Respiratory Ventilation, Less than 24 Consecutive Hours, Continuous Positive Airway Pressure (ICD-10-PCS; 2018-10-24)
PROC: 5A09357 Assistance with Respiratory Ventilation, Less than 24 Consecutive Hours, Continuous Positive Airway Pressure (ICD-10-PCS; 2018-10-25)
PROC: 5A09357 Assistance with Respiratory Ventilation, Less than 24 Consecutive Hours, Continuous Positive Airway Pressure (ICD-10-PCS; 2018-10-26)
PROC: 5A09357 Assistance with Respiratory Ventilation, Less than 24 Consecutive Hours, Continuous Positive Airway Pressure (ICD-10-PCS; 2018-10-27)
DX: J69.0 Pneumonitis due to inhalation of food and vomit (principal); J96.21 Acute and chronic respiratory failure with hypoxia; I50.33 Acute on chronic diastolic (congestive) heart failure; J44.1 Chronic obstructive pulmonary disease with (acute) exacerbation; G93.40 Encephalopathy, unspecified; E44.0 Moderate protein-calorie malnutrition; I42.9 Cardiomyopathy, unspecified; Z68.25 Body mass index [BMI] 25.0-25.9, adult; I11.0 Hypertensive heart disease with heart failure; F03.90 Unspecified dementia, unspecified severity, without behavioral disturbance, psychotic disturbance, mood disturbance, and anxiety; I48.91 Unspecified atrial fibrillation; M81.0 Age-related osteoporosis without current pathological fracture; F31.9 Bipolar disorder, unspecified; E03.9 Hypothyroidism, unspecified; K21.9 Gastro-esophageal reflux disease without esophagitis; D63.8 Anemia in other chronic diseases classified elsewhere; E87.6 Hypokalemia; E83.42 Hypomagnesemia; E87.70 Fluid overload, unspecified; Z86.73 Personal history of transient ischemic attack (TIA), and cerebral infarction without residual deficits; Z95.0 Presence of cardiac pacemaker; Z90.710 Acquired absence of both cervix and uterus; Z90.49 Acquired absence of other specified parts of digestive tract; Z98.49 Cataract extraction status, unspecified eye; Z88.0 Allergy status to penicillin; Z88.2 Allergy status to sulfonamides